=== PATIENT | female | born 1975 | race Caucasian/White ===

== ENCOUNTER 2020-07-19 18:23 | Inpatient (IN) ==
[2020-07-19] MEDS ORDERED: 0.9 % SODIUM CHLORIDE 1,000 ML IV ONE (18:46)
[2020-07-19] MEDS ORDERED: ASPIRIN 81 MG TAB.CHEW CHEWED ONE (18:51)
[2020-07-19] MEDS ORDERED: DEXAMETHASONE 10 MG/ML VIAL IV ONE (18:51)
[2020-07-19] MEDS ORDERED: REMDESIVIR 200 MG in 0.9 % SODIUM CHLORIDE 250 ML IV ONE (18:51)
--- NOTE | 2020-07-19 18:52 | Emergency Department Note ---
HPI General Chief complaint: Shortness of Breath/Dyspnea Stated complaint: SOB, covid positive Time Seen by Provider: 07/19/20 18:45 Source: patient Mode of arrival: wheelchair Limitations: no limitations History of Present Illness HPI Narrative: Narrative: 45-year-old patient presented with a history of symptoms consistent with upper respiratory infection that began 7 to 10 days ago. Associated symptoms include cough. Specific risk factors that I considered in this patient's case were obesity, hypertension, diabetes, pre-existing cardiovascular disease, and pre- existing pulmonary diseaseshe has asthma. Patient also reports concern for fever/myalgias. Symptoms are currently reported as mild to moderate in severity and continuous gradual progressive. Is exacerbated with coughing/not sleeping w ell. It is alleviated by rest. Patient has been seen for this recently. Patient has had current immunizations. Patient denies any sore throat, neck pain, chest pain, shortness of breath, abdominal pain, back pain, numbness or tingling in the extremities, skin rash, chills, vomiting, or diarrhea no other pain or complaints at this time. The patient reports symptoms are similar to previous flu/URI. Patient reports they do have sick contacts. Patient reports they have been tested for COVID19 and were tested negative however that was over a week ago. Related Data Home Medications Medication Instructions Recorded Confirmed liothyronine 5 mcg tablet 10 mcg PO QDAY tab 10/31/17 07/11/20 levothyroxine 25 mcg tablet 125 mcg PO QDAY tab 12/06/17 07/11/20 calcitriol 0.25 mcg capsule mcg PO 07/11/20 07/11/20 Previous Rx's Medication Instructions Recorded albuterol sulfate 90 mcg/actuation 2 puff INHALATION Q6H PRN #18 g 09/12/17 aerosol inhaler Allergies Allergy/AdvReac Type Severity Reaction Status Date / Time No Known Drug Allergies Allergy Verified 07/11/20 08:43 Review of Systems ROS ROS Narrative: Narrative: All systems ED: reviewed and negative except as stated. PFSH Narrative Patient History Narrative: Narrative: Medical/Surgical/Family History All Active Problems (Updated 07/19/20 @ 21:11 by Giancarlo Ritchie MD) COVID-19 (Acute) Abnormal mammogram of right breast (Acute) Encounter for screening mammogram for high-risk patient (Acute) Encounter for wellness examination (Acute) Prediabetes (Acute) JACQUI (obstructive sleep apnea) (Chronic) Influenza-like illness (Chronic) Hypoparathyroidism (Chronic) History of colon polyps (Chronic) Asthma (Chronic) Hypothyroidism (Chronic) Acute URI (Chronic) Reactive airway disease (Chronic) Low calcium levels (Chronic) Disorder of thyroid gland (Chronic) Kidney stones (Chronic ~2013) Hyperlipidemia (Chronic ~2013) Hypertension, essential (Chronic ~07/2017) Lung disorder (Chronic) Anemia (Chronic) Acid reflux (Chronic) Chronic cough (Chronic) Medical History (Updated 07/19/20 @ 21:11 by Giancarlo Ritchie MD) Acid reflux (Chronic) Acute URI (Chronic) Anemia (Chronic) during Asthma (Chronic) Disorder of thyroid gland (Chronic) Triage Nurse is Dr. Scott Encounter for wellness examination (Acute) History of colon polyps (Chronic) Hyperlipidemia (Chronic ~2013) Hypertension, essential (Chronic ~07/2017) Hypoparathyroidism (Chronic) Hypothyroidism (Chronic) Influenza-like illness (Chronic) Kidney stones (Chronic ~2013) Low calcium levels (Chronic) Lung disorder (Chronic) JACQUI (obstructive sleep apnea) (Chronic) Prediabetes (Acute) Reactive airway disease (Chronic) Surgical History H/O partial thyroidectomy (Chronic) 1997 Left side removed H/O thyroidectomy (Chronic) 2013 H/O: (Chronic 04/28/03) 2003 History of parathyroid surgery (Chronic ~2000) Resection History of parathyroidectomy (Chronic ~2013) History of surgery (Chronic ~1999) 1/2 goiter removed Family History Family/Other Arthritis Grandparent-maternal Leukemia Grandparent-maternal Diabetes Grandparent-maternal Thyroid disease Grandparent-maternal Family/Other Lung cancer Grandparent-paternal Thyroid disease Grandparent-paternal Mother Diabetes Hypertension, essential Sister Migraine Family/Other Thyroid disease Aunts Grandmother Liver cancer Skin cancer Grandfather Leukemia Social History Smoking Status: Never smoker Alcohol Intake Frequency: a few times a month Substance Use: does not use Exam Narrative Narrative: Narrative: General: Alert, interactive, appropriate Head: Atraumatic, normocephalic Eyes: Extraocular movements intact, sclera anicteric, no conjunctival injection Ears: Pinnae normal, no discharge Mouth: Oral mucosa moist, no acute swelling or evidence of infection Nares: No nasal discharge, patent bilaterally Neck: Trachea midline, full range of motion Chest: Symmetrical chest wall rise, tachypnea hypoxia patient in respiratory distress needing supplemental oxygen Cardiovascular: Patient with excellent perfusion to the extremities; without tachycardia/bradycardia Skin: Patient without area of erythema, patient is without rash, no ascending lymphangitis or lymphadenopathy Extremities: Full range of motion joints, no obvious deformities Neuro: Alert, oriented x3, cranial nerves II through XII grossly intact, patient without lateralizing findings such as weakness, or abnormal reflexes Psychiatric: Normal affect, normal mood General Limitations: no limitations Course Vital Signs Vital signs: Vital Signs Pulse Rate 102 H 07/19/20 18:32 Blood Pressure 126/80 07/19/20 18:32 Pulse Oximetry (%) 91 07/19/20 18:32 Temperature 99.0 F 07/19/20 18:43 Pulse Rate 89 07/19/20 20:45 Respiratory Rate 24 H 07/19/20 18:43 Blood Pressure 115/80 07/19/20 20:45 Pulse Oximetry (%) 92 07/19/20 20:45 MDM MDM Narrative Medical decision making narrative: This patient is presenting with symptoms and findings consistent with Covid infection. They are toxic in appearance with hypoxia tachypnea and tachycardia. They are not immunocompromised. The differential diagnosis also included bacterial pneumonia, influenza, pulmonary embolism, pneumothorax, pleural effusion. She was treated in the emergency department with Decadron aspirin first dose of remdesivir. Discussed the case with Dr. Hernandez and the consensus is to admit Lab Data Result diagrams: 07/19/20 20:12 07/19/20 20:12 Labs: Lab Results 07/19/20 07/19/20 07/19/20 Range/Units 20:12 20:12 20:12 WBC 12.0 H (4.5-11.0) K/mcL RBC 5.08 (4.00-5.20) M/mcL Hgb 13.0 (12.0-15.0) g/dL Hct 40.2 (36.0-48.0) % MCV 79.1 L (80.0-100.0) fL MCH 25.6 L (26.0-34.0) pg MCHC 32.3 (31.0-36.0) g/dL RDW 16.4 H (11.5-14.5) % Plt Count 448 H (140-440) K/mcL MPV 9.0 (7.4-10.4) fL Neut % (Auto) 84.0 H (38.0-78.0) % Lymph % (Auto) 9.6 L (15.0-49.0) % [place] % (Auto) 6.2 (1.0-12.0) % Eos % (Auto) 0 (0.0-7.0) % Baso % (Auto) 0.2 (0.0-2.0) % Lymph # (Auto) 1.15 L (1.50-4.80) K/mcL [place] # (Auto) 0.75 (0.10-0.90) K/mcL Eos # (Auto) 0 (0.00-0.70) K/mcL Baso # (Auto) 0.03 (0.00-0.20) K/mcL Absolute Neutrophils 10.08 H (1.80-8.00) K/mcL ABG Methemoglobin (0.4-1.5) % VBG pH U VBG pCO2 mmHg VBG pO2 mmHg VBG HCO3 mmol/L VBG Total CO2 mmol/L VBG O2 Saturation % VBG Base Excess (-2-3) VBG Lactic Acid 3.0 H (0.5-2.0) mmol/L Carboxyhemoglobin (0.0-1.5) % THgb Total Hemoglobin (13.5-16.5) gm/Dl Sodium 137 (133-145) mmol/L Potassium 3.1 L (3.3-5.1) mmol/L Chloride 97 (96-108) mmol/L Carbon Dioxide 20 L (22-30) mmol/L Anion Gap 20.0 H (8.0-16.0) BUN 17 (6-20) mg/dL Creatinine 1.1 (0.6-1.1) mg/dL GFR Calculation 61 Glucose 129 H (70-105) mg/dL Calcium 6.5 L (8.6-10.4) mg/dL Total Bilirubin 0.6 (0.1-1.0) mg/dL AST 29 (<32) U/L ALT 24 (<40) U/L Alkaline Phosphatase 54 (39-117) U/L Total Protein 7.5 (5.9-8.4) gm/dL Albumin 4.0 (3.2-5.2) gm/dL Globulin 3.5 (2.2-3.7) gm/dL Albumin/Globulin Ratio 1.1 (1.0-2.3) 07/19/20 Range/Units 20:28 WBC (4.5-11.0) K/mcL RBC (4.00-5.20) M/mcL Hgb (12.0-15.0) g/dL Hct (36.0-48.0) % MCV (80.0-100.0) fL MCH (26.0-34.0) pg MCHC (31.0-36.0) g/dL RDW (11.5-14.5) % Plt Count (140-440) K/mcL MPV (7.4-10.4) fL Neut % (Auto) (38.0-78.0) % Lymph % (Auto) (15.0-49.0) % [place] % (Auto) (1.0-12.0) % Eos % (Auto) (0.0-7.0) % Baso % (Auto) (0.0-2.0) % Lymph # (Auto) (1.50-4.80) K/mcL [place] # (Auto) (0.10-0.90) K/mcL Eos # (Auto) (0.00-0.70) K/mcL Baso # (Auto) (0.00-0.20) K/mcL Absolute Neutrophils (1.80-8.00) K/mcL ABG Methemoglobin 0 L (0.4-1.5) % VBG pH 7.47 U VBG pCO2 26.3 mmHg VBG pO2 146.8 mmHg VBG HCO3 18.8 mmol/L VBG Total CO2 19.6 mmol/L VBG O2 Saturation 94.1 % VBG Base Excess -4 L (-2-3) VBG Lactic Acid (0.5-2.0) mmol/L Carboxyhemoglobin 4.9 H (0.0-1.5) % THgb Total Hemoglobin 11.5 L (13.5-16.5) gm/Dl Sodium (133-145) mmol/L Potassium (3.3-5.1) mmol/L Chloride (96-108) mmol/L Carbon Dioxide (22-30) mmol/L Anion Gap (8.0-16.0) BUN (6-20) mg/dL Creatinine (0.6-1.1) mg/dL GFR Calculation Glucose (70-105) mg/dL Calcium (8.6-10.4) mg/dL Total Bilirubin (0.1-1.0) mg/dL AST (<32) U/L ALT (<40) U/L Alkaline Phosphatase (39-117) U/L Total Protein (5.9-8.4) gm/dL Albumin (3.2-5.2) gm/dL Globulin (2.2-3.7) gm/dL Albumin/Globulin Ratio (1.0-2.3) Discharge Plan Patient/Caregiver Discharge Instructions Pt seen by TIP MENDER/PA only: No Clinical Impression: COVID-19 Patient Disposition: Xfer As Inpt ([facility]) Condition: Fair Follow up with: Vira Dumont DO [Primary Care Provider] - Prescriptions: No Action liothyronine [Cytomel] 5 mcg tablet 10 mcg PO QDAY RF: 0 albuterol sulfate [ProAir HFA] 90 mcg/actuation HFA aerosol inhaler 2 puff INHALATION Q6H PRN (Reason: shortness of breath or wheezing) Qty: 18 RF: 0 levothyroxine [Synthroid] 25 mcg tablet 125 mcg PO QDAY RF: 0 calcitriol 0.25 mcg capsule PO RF: 0
[2020-07-19 20:36] LABS: Basophils # (Auto) 0.03 K/mcL (0.00-0.20); Basophils % (Auto) 0.2 % (0.0-2.0); Eosinophils # (Auto) 0 K/mcL (0.00-0.70); Eosinophils % (Auto) 0 % (0.0-7.0); Hematocrit 40.2 % (36.0-48.0); Lymphocytes # (Auto) 1.15 K/mcL (1.50-4.80); Lymphocytes % (Auto) 9.6 % (15.0-49.0); Mean Cell Volume 79.1 fL (80.0-100.0); Mean Corpuscular HGB Conc 32.3 g/dL (31.0-36.0); Monocytes # (Auto) 0.75 K/mcL (0.10-0.90); Monocytes % (Auto) 6.2 % (1.0-12.0); Platelet Count 448 K/mcL (140-440); RBC 5.08 M/mcL (4.00-5.20); Red Cell Distribution Width 16.4 % (11.5-14.5)
[2020-07-19 20:41] LABS: ALT/SGPT 24 U/L (<40); AST/SGOT 29 U/L (<32); Albumin/Globulin Ratio 1.1 (1.0-2.3); Alkaline Phosphatase 54 U/L (39-117); Bilirubin,Total 0.6 mg/dL (0.1-1.0); Blood Urea Nitrogen 17 mg/dL (6-20); Calcium 6.5 mg/dL (8.6-10.4); Carbon Dioxide 20 mmol/L (22-30); Chloride 97 mmol/L (96-108); Globulin 3.5 gm/dL (2.2-3.7); Glomerular Filtration Rate 61; Glucose 129 mg/dL (70-105)
[2020-07-19 20:46] LABS: ABG Methemoglobin 0 % (0.4-1.5); Total Hemoglobin 11.5 gm/Dl (13.5-16.5); VBG Base Excess -4 (-2-3); VBG HCO3 18.8 mmol/L; VBG Oxygen Saturation 94.1 %; VBG PCO2 26.3 mmHg; VBG PH 7.47 U; VBG PO2 146.8 mmHg; VBG Total CO2 19.6 mmol/L
--- NOTE | 2020-07-19 21:15 | Internal Med History&Physical ---
HPI History of Present Illness Patient information: Note initiated : 07/19/20 at 9:13 pm Service Date, if different from initiated Date: [] Patient: Kaety Maria a 45 y/o F admitted on for SOB, covid positive. 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 Patient is and lives with her who was recently diagnosed with Covid. Initial work-up in the ER was consistent with Covid pneumonia/white count 12,000. Patient was started on remdesivir/steroid. Hospital service was consulted. At the time of evaluation patient is on 3 L oxygen. She is anxious but able to talk in full sentences without significant respiratory distress. She denies headache, photophobia, nausea, diarrhea, dysuria, chest pain or productive cough. She does endorse to fatigue malaise weakness and fever. Review of systems 10 point review system was performed and is negative except for ones discussed above PFSH PFSH All Active Problems (Updated 07/19/20 @ 21:11 by Giancarlo Ritchie MD) COVID-19 (Acute) Abnormal mammogram of right breast (Acute) Encounter for screening mammogram for high-risk patient (Acute) Encounter for wellness examination (Acute) Prediabetes (Acute) JACQUI (obstructive sleep apnea) (Chronic) Influenza-like illness (Chronic) Hypoparathyroidism (Chronic) History of colon polyps (Chronic) Asthma (Chronic) Hypothyroidism (Chronic) Acute URI (Chronic) Reactive airway disease (Chronic) Low calcium levels (Chronic) Disorder of thyroid gland (Chronic) Kidney stones (Chronic ~2013) Hyperlipidemia (Chronic ~2013) Hypertension, essential (Chronic ~07/2017) Lung disorder (Chronic) Anemia (Chronic) Acid reflux (Chronic) Chronic cough (Chronic) Medical History (Updated 07/19/20 @ 21:11 by Giancarlo Ritchie MD) Acid reflux (Chronic) Acute URI (Chronic) Anemia (Chronic) during Asthma (Chronic) Disorder of thyroid gland (Chronic) Director Of Philanthropy is Dr. Scott Encounter for wellness examination (Acute) History of colon polyps (Chronic) Hyperlipidemia (Chronic ~2013) Hypertension, essential (Chronic ~07/2017) Hypoparathyroidism (Chronic) Hypothyroidism (Chronic) Influenza-like illness (Chronic) Kidney stones (Chronic ~2013) Low calcium levels (Chronic) Lung disorder (Chronic) JACQUI (obstructive sleep apnea) (Chronic) Prediabetes (Acute) Reactive airway disease (Chronic) Surgical History H/O partial thyroidectomy (Chronic) 1997 Left side removed H/O thyroidectomy (Chronic) 2013 H/O: (Chronic 04/28/03) 2003 History of parathyroid surgery (Chronic ~2000) Resection History of parathyroidectomy (Chronic ~2013) History of surgery (Chronic ~1999) 1/2 goiter removed Family History Family/Other Arthritis Grandparent-maternal Leukemia Grandparent-maternal Diabetes Grandparent-maternal Thyroid disease Grandparent-maternal Family/Other Lung cancer Grandparent-paternal Thyroid disease Grandparent-paternal Mother Diabetes Hypertension, essential Sister Migraine Family/Other Thyroid disease Aunts Grandmother Liver cancer Skin cancer Grandfather Leukemia Social History marital status: smoking status: Never smoker alcohol intake frequency: a few times a month substance use type: does not use MEDS/ALLERGIES Home Medications and Allergies Home Medications Medication Instructions Recorded Confirmed Type albuterol sulfate 90 mcg/actuation 2 puff INHALATION Q6H PRN #18 g 09/12/17 Rx aerosol inhaler liothyronine 5 mcg tablet 10 mcg PO QDAY tab 10/31/17 07/19/20 History levothyroxine 25 mcg tablet 125 mcg PO QDAY tab 12/06/17 07/19/20 History calcitriol 0.25 mcg capsule 0.25 mcg PO BID 07/11/20 07/19/20 History Allergies Allergy/AdvReac Type Severity Reaction Status Date / Time No Known Drug Allergies Allergy Verified 07/19/20 22:12 EXAM Constitutional Vitals: Temp Pulse Resp BP Pulse Ox 99.0 F 89 24 H 115/80 92 07/19/20 18:43 07/19/20 20:45 07/19/20 18:43 07/19/20 20:45 07/19/20 20:45 Anxious but alert and oriented Head normocephalic Oral cavity moist No ear nose discharge Eye movement symmetrical Neck supple no lymphadenopathy S1-S2 regular Nonlabored breathing on 2 L oxygen Nondistended nontender abdomen Lower extremity no cyanosis clubbing or joint swelling Skin no suspicious lesion Psych no hallucination Neuro normal higher function DATA Data Completed and Pending Labs: Labs from last 24 hours 07/19/20 07/19/20 07/19/20 20:28 20:12 20:12 WBC RBC Hgb Hct MCV MCH MCHC RDW Plt Count MPV Neut % (Auto) Lymph % (Auto) [place] % (Auto) Eos % (Auto) Baso % (Auto) Lymph # (Auto) [place] # (Auto) Eos # (Auto) Baso # (Auto) Absolute Neutrophils ABG Methemoglobin 0 L VBG pH 7.47 VBG pCO2 26.3 VBG pO2 146.8 VBG HCO3 18.8 VBG Total CO2 19.6 VBG O2 Saturation 94.1 VBG Base Excess -4 L VBG Lactic Acid 3.0 H Carboxyhemoglobin 4.9 H Total Hemoglobin 11.5 L Sodium 137 Potassium 3.1 L Chloride 97 Carbon Dioxide 20 L Anion Gap 20.0 H BUN 17 Creatinine 1.1 GFR Calculation 61 Glucose 129 H Calcium 6.5 L Total Bilirubin 0.6 AST 29 ALT 24 Alkaline Phosphatase 54 Total Protein 7.5 Albumin 4.0 Globulin 3.5 Albumin/Globulin Ratio 1.1 07/19/20 20:12 WBC 12.0 H RBC 5.08 Hgb 13.0 Hct 40.2 MCV 79.1 L MCH 25.6 L MCHC 32.3 RDW 16.4 H Plt Count 448 H MPV 9.0 Neut % (Auto) 84.0 H Lymph % (Auto) 9.6 L [place] % (Auto) 6.2 Eos % (Auto) 0 Baso % (Auto) 0.2 Lymph # (Auto) 1.15 L [place] # (Auto) 0.75 Eos # (Auto) 0 Baso # (Auto) 0.03 Absolute Neutrophils 10.08 H ABG Methemoglobin VBG pH VBG pCO2 VBG pO2 VBG HCO3 VBG Total CO2 VBG O2 Saturation VBG Base Excess VBG Lactic Acid Carboxyhemoglobin Total Hemoglobin Sodium Potassium Chloride Carbon Dioxide Anion Gap BUN Creatinine GFR Calculation Glucose Calcium Total Bilirubin AST ALT Alkaline Phosphatase Total Protein Albumin Globulin Albumin/Globulin Ratio A/P Narrative A/P Narrative: * COVID 19 Pneumonia, bilateral chest infiltrates on imaging. Start remdesivir/dexamethasone/COVID-19 precaution. Serial coagulation/inflammatory markers * Acute respiratory failure with hypoxia-initiate supplemental low-flow oxygen * hypokalemia-oral replacement * Hypocalcemia oral replacement * Hypothyroidism continue thyroxine * Full code * Prophylaxis Lovenox Plan * Inpt Admit * Remdesivir/dexamethasone * Coag/inflammatory markers * Emperic Abx * K/calcium replacement Time Spent With Patient Time: Total time spent is greater than 50% in coordination of care (as d ocumented) at patient's floor/unit and/or counseling patient:
[2020-07-19] MEDS ORDERED: BISACODYL 10 MG SUPP.RECT PR PRN (23:40)
[2020-07-19] MEDS ORDERED: hydrALAZINE 20 MG/ML VIAL IV PRN (23:40)
[2020-07-19] MEDS ORDERED: ONDANSETRON 4 MG ODT TABLET SL PRN (23:40)
[2020-07-19] MEDS ORDERED: POLYETHYLENE GLYCOL 3350 17 GM PACKET PO PRN (23:40)
[2020-07-19] MEDS ORDERED: ACETAMINOPHEN 325 MG TABLET PO PRN (23:40)
[2020-07-19] MEDS ORDERED: ONDANSETRON 4 MG/2 ML VIAL IV PRN (23:40)
[2020-07-19] MEDS ORDERED: POTASSIUM CHLORIDE 40 MEQ in DEXTROSE 5% IN WATER 500 ML IV PRN (23:40)
[2020-07-19] MEDS ORDERED: METOPROLOL TARTRATE 5 MG/5 ML VIAL IV PRN (23:40)
[2020-07-19] MEDS ORDERED: MAGNESIUM SULFATE 2 GM/50 ML BAG IV PRN (23:40)
[2020-07-19] MEDS ORDERED: MELATONIN 3 MG TABLET PO PRN (23:40)
[2020-07-19] MEDS ORDERED: ACETAMINOPHEN 650 MG/65 ML BOTTLE IV PRN (23:40)
[2020-07-19] MEDS ORDERED: guaiFENesin/CODEINE 10 ML UDC PO PRN (23:40)
[2020-07-19] MEDS ORDERED: guaiFENesin/DEXTROMETHORPHAN ORAL SOL ONE (23:55)
[2020-07-19] MEDS ORDERED: cefTRIAXone 1 GM VIAL ONE (23:59)
[2020-07-20] MEDS ORDERED: guaiFENesin/DEXTROMETHORPHAN ORAL SOL ONE ×2 (00:01→00:11)
[2020-07-20] MEDS: 0.9 % SODIUM CHLORIDE 10 ML SYRINGE IV SCH ×4 (00:20→20:03)
[2020-07-20] MEDS: AZITHROMYCIN 500 MG in DEXTROSE 5% IN WATER 250 ML IV SCH ×2 (00:20→15:34)
[2020-07-20] MEDS: cefTRIAXone 2 GM in DEXTROSE 5% IN WATER 50 ML IV SCH ×2 (00:21→13:47)
[2020-07-20 06:32] LABS: Basophils # (Auto) 0.03 K/mcL (0.00-0.20); Basophils % (Auto) 0.4 % (0.0-2.0); Eosinophils # (Auto) 0 K/mcL (0.00-0.70); Eosinophils % (Auto) 0 % (0.0-7.0); Hematocrit 35.7 % (36.0-48.0); Hemoglobin 11.6 g/dL (12.0-15.0); Lymphocytes % (Auto) 9.4 % (15.0-49.0); Mean Cell Volume 79.7 fL (80.0-100.0); Mean Corpuscular HGB Conc 32.5 g/dL (31.0-36.0); Mean Platelet Volume 9.2 fL (7.4-10.4); Monocytes # (Auto) 0.62 K/mcL (0.10-0.90); Monocytes % (Auto) 7.3 % (1.0-12.0); Neutrophils % (Auto) 82.9 % (38.0-78.0); Platelet Count 366 K/mcL (140-440); RBC 4.48 M/mcL (4.00-5.20); Red Cell Distribution Width 16.5 % (11.5-14.5); WBC 8.5 K/mcL (4.5-11.0)
[2020-07-20 07:26] LABS: Ferritin 359.5 ng/mL (13.0-150.0)
--- NOTE | 2020-07-20 07:43 | XRay Report ---
HISTORY: Shortness of breath and patient's has Covid infection FINDINGS: There are mild generalized alveolar infiltrates throughout both lungs. There is no lobar consolidation or pleural effusion. The heart size is normal. No adenopathy is detected. The infiltrates are new since 09/12/17. IMPRESSION: Bilateral pneumonia Interpreted and Authenticated by: Celestino Brumfield 07/20/20
[2020-07-20 07:49] LABS: ALT/SGPT 22 U/L (<40); AST/SGOT 26 U/L (<32); Albumin 3.4 gm/dL (3.2-5.2); Albumin/Globulin Ratio 1.1 (1.0-2.3); Alkaline Phosphatase 48 U/L (39-117); Bilirubin,Direct < 0.2 mg/dL (<0.3); Bilirubin,Total 0.3 mg/dL (0.1-1.0); Blood Urea Nitrogen 14 mg/dL (6-20); Calcium 5.7 mg/dL (8.6-10.4); Carbon Dioxide 20 mmol/L (22-30); Chloride 104 mmol/L (96-108); Globulin 3.1 gm/dL (2.2-3.7); Glomerular Filtration Rate 90; Glucose 199 mg/dL (70-105); Lactate Dehydrogenase 440 U/L (135-225); Triglycerides 62 mg/dL (<150); Uric Acid 7.8 mg/dL (2.5-8.0)
[2020-07-20] MEDS ORDERED: CALCIUM GLUCONATE 4.65 MEQ/10 ML VIAL IV ONE (08:13)
[2020-07-20] MEDS ORDERED: CALCIUM GLUCONATE 9.3 MEQ in DEXTROSE 5% IN WATER 50 ML IV ONE (08:30)
[2020-07-20] MEDS ORDERED: CALCIUM GLUCONATE 4.65 MEQ/10 ML VIAL IV PRN (08:51)
[2020-07-20] MEDS ORDERED: CALCIUM GLUCONATE 9.3 MEQ in DEXTROSE 5% IN WATER 100 ML IV PRN ×2 (09:09→09:15)
[2020-07-20] MEDS: 0.9 % SODIUM CHLORIDE 1,000 ML IV SCH (09:59)
[2020-07-20] MEDS: DOCUSATE SODIUM 100 MG CAPSULE PO SCH ×2 (09:59→20:03)
[2020-07-20] MEDS: DEXAMETHASONE 4 MG TABLET PO SCH (09:59)
[2020-07-20] MEDS: ENOXAPARIN 40 MG/0.4 ML SYRINGE SQ SCH (10:00)
[2020-07-20] MEDS: MULTIVIT,THER IRON,CA,FA & MIN 1 TABLET PO SCH (10:01)
[2020-07-20] MEDS: TIOTROPIUM BROMIDE 18 MCG INHALANT INH SCH (10:28)
[2020-07-20] MEDS: BUDESONIDE 1 PUFF INHALER INH SCH ×2 (10:29→20:44)
--- NOTE | 2020-07-20 10:39 | Internal Med Progress Note ---
SUBJECTIVE Subjective Patient information: Note initiated : 07/20/20 at 10:37 am Service Date, if different from initiated Date: [] Patient: Katey Maria a 45 y/o F admitted on 07/19/20 for SOB, covid positive. 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 Patient is and lives with her who was recently diagnosed with Covid. Initial work-up in the ER was consistent with Covid pneumonia/white count 12,000. Patient was started on remdesivir/steroid. Hospital service was consulted. At the time of evaluation patient is on 3 L oxygen. She is anxious but able to talk in full sentences without significant respiratory distress. She denies headache, photophobia, nausea, diarrhea, dysuria, chest pain or productive cough. She does endorse to fatigue malaise weakness and fever. 07/20-patient currently on 5 L oxygen with worsening respiratory status since previous night. Currently on remdesivir/dexamethasone. Feels anxious. No telemetry events. Continue COVID-19 precautions. White count 8.5. Stable hemodynamics. Potassium up from 3.1-3.7. Calcium 5.7 on replacement. Creatinine 1.8. Constitutional Vitals: Vital Signs Temp Pulse Resp BP Pulse Ox 97.4 F 73 24 H 111/81 94 07/20/20 07:41 07/20/20 10:25 07/20/20 10:01 07/20/20 10:01 07/20/20 10:25 Period Temp Pulse Resp BP Sys/Cobb Pulse Ox Last 24 Hr 97 F-99.0 F 63-103 24-31 89-131/56-100 83-99 Intake and Output 07/19/20 07/20/20 07/20/20 21:59 05:59 13:59 Intake Total 1000 250 350 Balance 1000 250 350 Weight 88.088 kg 87.044 kg Alert but very anxious Minimally labored breathing on 5 L oxygen No lymphedema Intake & Output: Intake & Output 07/19/20 07/20/20 07/20/20 21:59 05:59 13:59 Intake Total 1000 250 350 Balance 1000 250 350 Weight 88.088 kg 87.044 kg Intake: IV 1000 250 250 Sodium Chloride 0.9% 1,000 ml @ 1000 Wide Open IV BOLUS ONE Rx#: [id number] Zithromax 500 mg In Dextrose 5% 250 in Water 250 ml @ 250 mls/hr IV Q24H [facility] Rx#:[id number] Veklury 200 mg In Sodium 250 Chloride 0.9% 250 ml @ 500 mls/ hr IV ONCE ONE Rx#:[id number] Oral 100 Other: # Voids 1 1 # Bowel Movements 1 OBJ DATA Labs CBC & Chem 7: 07/20/20 05:01 07/20/20 05:01 Labs: Abnormal Lab Results 07/20/20 07/20/20 07/19/20 05:01 05:01 20:28 WBC Hgb 11.6 L Hct 35.7 L MCV 79.7 L MCH 25.9 L RDW 16.5 H Plt Count Neut % (Auto) 82.9 H Lymph % (Auto) 9.4 L Lymph # (Auto) 0.80 L Absolute Neutrophils ABG Methemoglobin 0 L VBG Base Excess -4 L VBG Lactic Acid Carboxyhemoglobin 4.9 H Total Hemoglobin 11.5 L Potassium Carbon Dioxide 20 L Anion Gap 17.0 H Glucose 199 H Calcium 5.7 L* Ferritin 359.5 H GGT 47 H Lactate Dehydrogenase 440 H C-Reactive Protein 13.50 H 07/19/20 07/19/20 07/19/20 20:12 20:12 20:12 WBC 12.0 H Hgb Hct MCV 79.1 L MCH 25.6 L RDW 16.4 H Plt Count 448 H Neut % (Auto) 84.0 H Lymph % (Auto) 9.6 L Lymph # (Auto) 1.15 L Absolute Neutrophils 10.08 H ABG Methemoglobin VBG Base Excess VBG Lactic Acid 3.0 H Carboxyhemoglobin Total Hemoglobin Potassium 3.1 L Carbon Dioxide 20 L Anion Gap 20.0 H Glucose 129 H Calcium 6.5 L Ferritin GGT Lactate Dehydrogenase C-Reactive Protein Meds: Medications Acetaminophen (Tylenol) 650 mg PO Q4-6HP PRN; Protocol PRN Reason: Per Pain Protocol/Fever > 101 Bisacodyl (Dulcolax) 10 mg MO Q2-3DAYS PRN PRN Reason: Constipation Budesonide (Pulmicort) 2 puff INH BID [facility] Last Admin: 07/20/20 10:29 Dose: 2 puff Documented by: Dexamethasone (Decadron) 6 mg PO DAILY [facility] Last Admin: 07/20/20 09:59 Dose: 6 mg Documented by: Docusate Sodium (Colace) 100 mg PO BID [facility] Last Admin: 07/20/20 09:59 Dose: Not Given Documented by: Enoxaparin Sodium (Lovenox) 40 mg SQ DAILY [facility] Last Admin: 07/20/20 10:00 Dose: 40 mg Documented by: Guaifenesin/Codeine Phosphate (Robitussin Ac) 10 ml PO Q4HP PRN PRN Reason: Cough Hydralazine HCl (Apresoline) 10 mg IV Q4-6HP PRN PRN Reason: Hypertension Azithromycin 500 mg/ Dextrose 250 mls @ 250 mls/hr IV Q24H [facility]; Protocol Stop: 07/22/20 00:39 Last Infusion: 07/20/20 06:59 Dose: Infused Documented by: Ceftriaxone Sodium 2 gm/ (Dextrose) 50 mls @ 100 mls/hr IV Q24H [facility]; Protocol Last Admin: 07/20/20 00:21 Dose: Not Given Documented by: Potassium Chloride 40 meq/ (Dextrose) 520 mls @ 130 mls/hr IV UD PRN PRN Reason: K+ = or < 3.5 Acetaminophen (Ofirmev) 650 mg in 65 mls @ 130 mls/hr IV Q6HP PRN; Protocol PRN Reason: Per Pain Protocol/Fever > 101 Magnesium Sulfate (Magnesium Sulfate) 2 gm in 50 mls @ 50 mls/hr IV UD PRN PRN Reason: MG = or < 1.7 Lactated Ringer's (Lactated Ringers) 1,000 mls @ 75 mls/hr IV .[id number] [facility] Stop: 07/22/20 00:59 Sodium Chloride (Sodium Chloride 0.9%) 1,000 mls @ 0 mls/hr IV BOLUS [facility] Last Admin: 07/20/20 09:59 Dose: 999 mls/hr Documented by: Calcium Gluconate 9.3 meq/ (Dextrose) 120 mls @ 120 mls/hr IV DAILYP PRN PRN Reason: CA <7.5 REMDESIVIR 100 mg/ Sodium (Chloride) 250 mls @ 500 mls/hr IV Q24H [facility] Stop: 07/23/20 13:29 Iron Carb/Multivit/Weld/Folic Acid (Multivitamin W/Minerals) 1 tab PO DAILY [facility] Last Admin: 07/20/20 10:01 Dose: 1 tab Documented by: Melatonin (Melatonin 3mg Tablet) 3 mg PO HSP PRN PRN Reason: Insomnia Metoprolol Tartrate (Lopressor) 5 mg IV Q5M PRN PRN Reason: Heart Rate > 140 bpm Ondansetron HCl (Zofran Odt) 4 mg SL Q4-6HP PRN; Protocol PRN Reason: Nausea And Vomiting Ondansetron HCl (Zofran) 4 mg IV Q4-6HP PRN; Protocol PRN Reason: Nausea And Vomiting Polyethylene Glycol (Miralax) 17 gm PO DAILYP PRN PRN Reason: Constipation Potassium Chloride (Klor-Con) 40 meq PO DAILYP PRN PRN Reason: K+ < 3.5 Senna/Docusate Sodium (Senna Plus Tablet) 1 tab PO HS [facility] Sodium Chloride (Saline Flush) 10 ml IV Q8 [facility] Last Admin: 07/20/20 06:00 Dose: 10 ml Documented by: Tiotropium [place] (Spiriva) 18 mcg INH DAILY [facility] Last Admin: 07/20/20 10:28 Dose: 18 mcg Documented by: ABG Interpretation ABG results: 07/19/20 20:28 ABG Methemoglobin 0 L VBG pH 7.47 VBG pCO2 26.3 VBG pO2 146.8 VBG HCO3 18.8 VBG Total CO2 19.6 VBG O2 Saturation 94.1 VBG Base Excess -4 L A/P Narrative A/P Narrative: * COVID 19 Pneumonia, bilateral chest infiltrates on imaging. Start remdesivir/dexamethasone/COVID-19 precaution. Serial coagulation/inflammatory markers * Acute respiratory failure with hypoxia-initiate supplemental low-flow oxygen * hypokalemia-oral replacement * Hypocalcemia oral replacement * Hypothyroidism continue thyroxine * Full code * Prophylaxis Lovenox Plan * Empiric antibiotic coverage/Remdesivir/dexamethasone * Follow coag/inflammatory marker * calcium replacement * Nutrition support Time Spent With Patient Time: Total time spent is greater than 50% in coordination of care (as do cumented) at patient's floor/unit and/or counseling patient: QUALITY VTE Deep Vein Thrombosis/Pulmonary Embolism Present on Admission: No
[2020-07-20] MEDS: REMDESIVIR 100 MG in 0.9 % SODIUM CHLORIDE 250 ML IV SCH (12:51)
[2020-07-20] MEDS: LACTATED RINGERS 1,000 ML IV SCH ×2 (17:08→22:33)
[2020-07-20] MEDS: SENNOSIDES/DOCUSATE SODIUM 1 TAB TABLET PO SCH (20:03)
[2020-07-20] MEDS: CALCITRIOL 0.25 MCG CAPSULE PO SCH (20:44)
[2020-07-20] MEDS ORDERED: LORazepam 0.5 MG TABLET PO PRN (22:16)
[2020-07-21] MEDS: 0.9 % SODIUM CHLORIDE 10 ML SYRINGE IV SCH ×3 (05:02→23:12)
[2020-07-21] MEDS: LACTATED RINGERS 1,000 ML IV SCH ×2 (05:56→15:29)
[2020-07-21 06:46] LABS: Basophils # (Auto) 0.04 K/mcL (0.00-0.20); Basophils % (Auto) 0.4 % (0.0-2.0); Eosinophils # (Auto) 0.01 K/mcL (0.00-0.70); Eosinophils % (Auto) 0.1 % (0.0-7.0); Hematocrit 33.4 % (36.0-48.0); Hemoglobin 10.7 g/dL (12.0-15.0); Lymphocytes # (Auto) 1.47 K/mcL (1.50-4.80); Lymphocytes % (Auto) 14.8 % (15.0-49.0); Mean Cell Volume 80.9 fL (80.0-100.0); Mean Platelet Volume 9.2 fL (7.4-10.4); Monocytes # (Auto) 0.89 K/mcL (0.10-0.90); Neutrophils % (Auto) 75.7 % (38.0-78.0); Platelet Count 405 K/mcL (140-440); RBC 4.13 M/mcL (4.00-5.20); Red Cell Distribution Width 16.7 % (11.5-14.5); WBC 9.9 K/mcL (4.5-11.0)
[2020-07-21 07:07] LABS: ALT/SGPT 19 U/L (<40); AST/SGOT 22 U/L (<32); Albumin 2.9 gm/dL (3.2-5.2); Albumin/Globulin Ratio 1.1 (1.0-2.3); Alkaline Phosphatase 43 U/L (39-117); Bilirubin,Direct < 0.2 mg/dL (<0.3); Bilirubin,Total 0.2 mg/dL (0.1-1.0); Blood Urea Nitrogen 15 mg/dL (6-20); Calcium 6.1 mg/dL (8.6-10.4); Carbon Dioxide 21 mmol/L (22-30); Chloride 108 mmol/L (96-108); Globulin 2.7 gm/dL (2.2-3.7); Glomerular Filtration Rate 106; Glucose 127 mg/dL (70-105); Lactate Dehydrogenase 400 U/L (135-225); Phosphorous 3.6 mg/dL (2.5-4.5); Triglycerides 25 mg/dL (<150)
[2020-07-21] MEDS: LEVOTHYROXINE 125 MCG TABLET PO SCH (07:20)
[2020-07-21] MEDS: LIOTHYRONINE 5 MCG TABLET PO SCH (07:20)
[2020-07-21] MEDS: DOCUSATE SODIUM 100 MG CAPSULE PO SCH ×2 (08:02→21:02)
[2020-07-21] MEDS: cefTRIAXone 2 GM in DEXTROSE 5% IN WATER 50 ML IV SCH (08:20)
[2020-07-21] MEDS: ENOXAPARIN 40 MG/0.4 ML SYRINGE SQ SCH ×2 (08:20→21:01)
[2020-07-21] MEDS: CALCITRIOL 0.25 MCG CAPSULE PO SCH ×2 (08:20→20:59)
[2020-07-21] MEDS: MULTIVIT,THER IRON,CA,FA & MIN 1 TABLET PO SCH (08:20)
[2020-07-21] MEDS: DEXAMETHASONE 4 MG TABLET PO SCH (08:21)
[2020-07-21] MEDS: BUDESONIDE 1 PUFF INHALER INH SCH ×2 (08:27→21:02)
[2020-07-21] MEDS: TIOTROPIUM BROMIDE 18 MCG INHALANT INH SCH (08:27)
--- NOTE | 2020-07-21 08:55 | XRay Report ---
HISTORY: Follow-up pneumonia FINDINGS: Moderate diffuse alveolar infiltrate is present throughout the left lung and there is also moderate involvement centrally in the right lung. These have become worse bilaterally since 07/19/20. No pleural effusion is present. The heart appears borderline enlarged but is magnified by portable technique and suboptimal inspiration.. IMPRESSION: Worsening bilateral pneumonia Interpreted and Authenticated by: Celestino Brumfield 07/21/20
[2020-07-21] MEDS ORDERED: FLU VACC QS2020-21(6MOS UP)/PF 60 MCG/0.5 ML SYRINGE IM ONE (10:00)
--- NOTE | 2020-07-21 10:52 | Internal Med Progress Note ---
SUBJECTIVE Subjective Patient information: Note initiated : 07/21/20 at 10:47 am Service Date, if different from initiated Date: [] Patient: Katey Maria a 45 y/o F admitted on 07/19/20 for SOB, covid positive. 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 Patient is and lives with her who was recently diagnosed with Covid. Initial work-up in the ER was consistent with Covid pneumonia/white count 12,000. Patient was started on remdesivir/steroid. Hospital service was consulted. At the time of evaluation patient is on 3 L oxygen. She is anxious but able to talk in full sentences without significant respiratory distress. She denies headache, photophobia, nausea, diarrhea, dysuria, chest pain or productive cough. She does endorse to fatigue malaise weakness and fever. 07/20-patient currently on 5 L oxygen with worsening respiratory status since previous night. Currently on remdesivir/dexamethasone. Feels anxious. No telemetry events. Continue COVID-19 precautions. White count 8.5. Stable hemodynamics. Potassium up from 3.1-3.7. Calcium 5.7 on replacement. Creatinine 1.8. Later in the evening patient became profoundly short of breath and requiring 10 days oxygen. Patient transition to noninvasive ventilation. Clear worsening of Covid pneumonia noted. Now on 55% FiO2 on noninvasive ventilation. Continue remdesivir/dexamethasone. Consider transfer to tertiary center if clinical deterioration noted. Patient critically ill with [place] 2 score 15. 07/21-patient overnight on noninvasive mechanical ventilation. Currently on 40% FiO2. Feels a lot better. Less things anxious. White count 9.9. D-dimer low, potassium 3.2 on replacement, calcium 6.1 on replacement, ferritin 359, CRP 13.5. Continue twice daily thrombosis prophylaxis./Antibiotics/remdesivir dexamethasone Constitutional Vitals: Vital Signs Temp Pulse Resp BP Pulse Ox 97.1 F 66 21 126/112 97 07/21/20 08:22 07/21/20 10:29 07/21/20 08:00 07/21/20 10:29 07/21/20 10:29 Period Temp Pulse Resp BP Sys/Cobb Pulse Ox Last 24 Hr 97.1 F-98.6 F 58-90 21-30 98-140/65-123 88-98 Intake and Output 07/20/20 07/21/20 07/21/20 21:59 05:59 13:59 Intake Total 780 960 Output Total 50 Balance 780 910 Weight 90.174 kg Alert oriented Improve anxiety On CPAP 40- 55% FiO2 Stable hemodynamics Intake & Output: Intake & Output 07/20/20 07/21/20 07/21/20 21:59 05:59 13:59 Intake Total 780 960 Output Total 50 Balance 780 910 Weight 90.174 kg Intake: IV 300 960 Zithromax 500 mg In Dextrose 5% 250 in Water 250 ml @ 250 mls/hr IV Q24H [facility] Rx#:[id number] Lactated Ringers 1,000 ml @ 75 960 mls/hr IV .[id number] RUMA Rx#: [id number] Rocephin 2 gm In Dextrose 5% in 50 Water 50 ml @ 100 mls/hr IV Q24H RUMA Rx#:[id number] Oral 480 0 Output: Void Amount 50 Other: Meal Dinner Percent of Meal Consumed 100% Feeding Ability Independent Urine Appearance Clear Clear Urine Color Bright Yellow Bright Yellow Stool Size Small Moderate Stool Color Brown Brown Stool Consistency Loose Loose Loose # Voids 1 1 1 # Bowel Movements 1 1 OBJ DATA Labs CBC & Chem 7: 07/21/20 05:00 07/21/20 05:00 Labs: Abnormal Lab Results 07/21/20 07/21/20 07/21/20 05:00 05:00 05:00 WBC Hgb 10.7 L Hct 33.4 L MCV MCH 25.9 L RDW 16.7 H Plt Count Neut % (Auto) Lymph % (Auto) 14.8 L Lymph # (Auto) 1.47 L Absolute Neutrophils D-Dimer < 0.27 L ABG Methemoglobin VBG Base Excess VBG Lactic Acid Carboxyhemoglobin Total Hemoglobin Potassium 3.2 L Carbon Dioxide 21 L Anion Gap Glucose 127 H Calcium 6.1 L Ferritin GGT 40 H Lactate Dehydrogenase 400 H C-Reactive Protein Total Protein 5.6 L Albumin 2.9 L 07/20/20 07/20/20 07/19/20 05:01 05:01 20:28 WBC Hgb 11.6 L Hct 35.7 L MCV 79.7 L MCH 25.9 L RDW 16.5 H Plt Count Neut % (Auto) 82.9 H Lymph % (Auto) 9.4 L Lymph # (Auto) 0.80 L Absolute Neutrophils D-Dimer ABG Methemoglobin 0 L VBG Base Excess -4 L VBG Lactic Acid Carboxyhemoglobin 4.9 H Total Hemoglobin 11.5 L Potassium Carbon Dioxide 20 L Anion Gap 17.0 H Glucose 199 H Calcium 5.7 L* Ferritin 359.5 H GGT 47 H Lactate Dehydrogenase 440 H C-Reactive Protein 13.50 H Total Protein Albumin 07/19/20 07/19/20 07/19/20 20:12 20:12 20:12 WBC 12.0 H Hgb Hct MCV 79.1 L MCH 25.6 L RDW 16.4 H Plt Count 448 H Neut % (Auto) 84.0 H Lymph % (Auto) 9.6 L Lymph # (Auto) 1.15 L Absolute Neutrophils 10.08 H D-Dimer ABG Methemoglobin VBG Base Excess VBG Lactic Acid 3.0 H Carboxyhemoglobin Total Hemoglobin Potassium 3.1 L Carbon Dioxide 20 L Anion Gap 20.0 H Glucose 129 H Calcium 6.5 L Ferritin GGT Lactate Dehydrogenase C-Reactive Protein Total Protein Albumin Meds: Medications Acetaminophen (Tylenol) 650 mg PO Q4-6HP PRN; Protocol PRN Reason: Per Pain Protocol/Fever > 101 Bisacodyl (Dulcolax) 10 mg CO Q2-3DAYS PRN PRN Reason: Constipation Budesonide (Pulmicort) 2 puff INH BID [facility] Last Admin: 07/21/20 08:27 Dose: 2 puff Documented by: Calcitriol (Rocaltrol) 0.25 mcg PO BID [facility] Last Admin: 07/21/20 08:20 Dose: 0.25 mcg Documented by: Dexamethasone (Decadron) 6 mg PO DAILY [facility] Last Admin: 07/21/20 08:21 Dose: 6 mg Documented by: Docusate Sodium (Colace) 100 mg PO BID [facility] Last Admin: 07/21/20 08:02 Dose: Not Given Documented by: Enoxaparin Sodium (Lovenox) 40 mg SQ DAILY [facility] Last Admin: 07/21/20 08:20 Dose: 40 mg Documented by: Guaifenesin/Codeine Phosphate (Robitussin Ac) 10 ml PO Q4HP PRN PRN Reason: Cough Hydralazine HCl (Apresoline) 10 mg IV Q4-6HP PRN PRN Reason: Hypertension Azithromycin 500 mg/ Dextrose 250 mls @ 250 mls/hr IV Q24H [facility]; Protocol Stop: 07/22/20 00:39 Last Infusion: 07/20/20 16:43 Dose: Infused Documented by: Ceftriaxone Sodium 2 gm/ (Dextrose) 50 mls @ 100 mls/hr IV Q24H [facility]; Protocol Last Admin: 07/21/20 08:20 Dose: 100 mls/hr Documented by: Potassium Chloride 40 meq/ (Dextrose) 520 mls @ 130 mls/hr IV UD PRN PRN Reason: K+ = or < 3.5 Acetaminophen (Ofirmev) 650 mg in 65 mls @ 130 mls/hr IV Q6HP PRN; Protocol PRN Reason: Per Pain Protocol/Fever > 101 Magnesium Sulfate (Magnesium Sulfate) 2 gm in 50 mls @ 50 mls/hr IV UD PRN PRN Reason: MG = or < 1.7 Lactated Ringer's (Lactated Ringers) 1,000 mls @ 75 mls/hr IV .[id number] [facility] Stop: 07/22/20 00:59 Last Admin: 07/21/20 05:56 Dose: 75 mls/hr Documented by: Calcium Gluconate 9.3 meq/ (Dextrose) 120 mls @ 120 mls/hr IV DAILYP PRN PRN Reason: CA <7.5 REMDESIVIR 100 mg/ Sodium (Chloride) 250 mls @ 500 mls/hr IV Q24H [facility] Stop: 07/23/20 13:29 Last Infusion: 07/20/20 13:46 Dose: Infused Documented by: Iron Carb/Multivit/Legal Document Assistant/Folic Acid (Multivitamin W/Minerals) 1 tab PO DAILY [facility] Last Admin: 07/21/20 08:20 Dose: 1 tab Documented by: Levothyroxine Sodium (Synthroid) 125 mcg PO QAMAC [facility] Last Admin: 07/21/20 07:20 Dose: 125 mcg Documented by: Liothyronine Sodium (Cytomel) 10 mcg PO QAMAC [facility] Last Admin: 07/21/20 07:20 Dose: 10 mcg Documented by: Lorazepam (Ativan) 0.5 mg PO Q6HP PRN PRN Reason: ANXIETY/SEDATION Melatonin (Melatonin 3mg Tablet) 3 mg PO HSP PRN PRN Reason: Insomnia Metoprolol Tartrate (Lopressor) 5 mg IV Q5M PRN PRN Reason: Heart Rate > 140 bpm Ondansetron HCl (Zofran Odt) 4 mg SL Q4-6HP PRN; Protocol PRN Reason: Nausea And Vomiting Ondansetron HCl (Zofran) 4 mg IV Q4-6HP PRN; Protocol PRN Reason: Nausea And Vomiting Polyethylene Glycol (Miralax) 17 gm PO DAILYP PRN PRN Reason: Constipation Potassium Chloride (Klor-Con) 40 meq PO DAILYP PRN PRN Reason: K+ < 3.5 Senna/Docusate Sodium (Senna Plus Tablet) 1 tab PO HS [facility] Last Admin: 07/20/20 20:03 Dose: Not Given Documented by: Sodium Chloride (Saline Flush) 10 ml IV Q8 [facility] Last Admin: 07/21/20 05:02 Dose: Not Given Documented by: Tiotropium [place] (Spiriva) 18 mcg INH DAILY [facility] Last Admin: 07/21/20 08:27 Dose: 18 mcg Documented by: ABG Interpretation ABG results: 07/19/20 20:28 ABG Methemoglobin 0 L VBG pH 7.47 VBG pCO2 26.3 VBG pO2 146.8 VBG HCO3 18.8 VBG Total CO2 19.6 VBG O2 Saturation 94.1 VBG Base Excess -4 L A/P Narrative A/P Narrative: * COVID 19 Pneumonia, clinical deterioration noted with increasing need for oxygen. Currently on noninvasive mechanical ventilation. Bilateral chest infiltrates on imaging. Continue remdesivir/dexamethasone/COVID-19 precaution. Thrombosis prophylaxis twice daily Lovenox * Acute respiratory failure with hypoxia-on noninvasive mechanical ventilation. Wean oxygen as tolerated. Large AA gradient * hypokalemia-oral replacement, potassium 3.2 * Hypocalcemia continue oral replacement * Hypothyroidism continue thyroxine * Full code * Prophylaxis twice daily Lovenox Plan * Empiric antibiotic coverage/Remdesivir/dexamethasone/thrombosis prophylaxis * Follow coag/inflammatory marker * Electrolyte replacement * Nutrition support/directed therapies Critical care time over 35 minutes QUALITY VTE Deep Vein Thrombosis/Pulmonary Embolism Present on Admission: No
[2020-07-21] MEDS: REMDESIVIR 100 MG in 0.9 % SODIUM CHLORIDE 250 ML IV SCH (10:56)
[2020-07-21] MEDS: 0.9 % SODIUM CHLORIDE 1,000 ML IV SCH (10:57)
[2020-07-21] MEDS: AZITHROMYCIN 500 MG in DEXTROSE 5% IN WATER 250 ML IV SCH (14:46)
[2020-07-21] MEDS: POTASSIUM CHLORIDE 20 MEQ PACKET PO PRN (17:10)
[2020-07-21] MEDS: SENNOSIDES/DOCUSATE SODIUM 1 TAB TABLET PO SCH (21:02)
[2020-07-22] MEDS: 0.9 % SODIUM CHLORIDE 10 ML SYRINGE IV SCH ×3 (05:42→20:18)
[2020-07-22 07:12] LABS: ALT/SGPT 16 U/L (<40); AST/SGOT 20 U/L (<32); Albumin 2.7 gm/dL (3.2-5.2); Alkaline Phosphatase 43 U/L (39-117); Bilirubin,Direct < 0.2 mg/dL (<0.3); Bilirubin,Total 0.2 mg/dL (0.1-1.0); Blood Urea Nitrogen 13 mg/dL (6-20); Calcium 6.1 mg/dL (8.6-10.4); Carbon Dioxide 22 mmol/L (22-30); Chloride 111 mmol/L (96-108); Globulin 2.6 gm/dL (2.2-3.7); Glomerular Filtration Rate 111; Glucose 100 mg/dL (70-105); Lactate Dehydrogenase 404 U/L (135-225); Phosphorous 3.7 mg/dL (2.5-4.5); Triglycerides 38 mg/dL (<150)
[2020-07-22 07:27] LABS: Basophils # (Auto) 0.03 K/mcL (0.00-0.20); Basophils % (Auto) 0.3 % (0.0-2.0); Eosinophils # (Auto) 0.01 K/mcL (0.00-0.70); Eosinophils % (Auto) 0.1 % (0.0-7.0); Hematocrit 31.4 % (36.0-48.0); Hemoglobin 10.1 g/dL (12.0-15.0); Lymphocytes # (Auto) 2.29 K/mcL (1.50-4.80); Mean Cell Volume 80.9 fL (80.0-100.0); Mean Corpuscular HGB Conc 32.2 g/dL (31.0-36.0); Mean Platelet Volume 9.4 fL (7.4-10.4); Monocytes # (Auto) 0.99 K/mcL (0.10-0.90); Monocytes % (Auto) 8.6 % (1.0-12.0); Platelet Count 397 K/mcL (140-440); RBC 3.88 M/mcL (4.00-5.20); Red Cell Distribution Width 16.9 % (11.5-14.5); WBC 11.5 K/mcL (4.5-11.0)
[2020-07-22] MEDS: LIOTHYRONINE 5 MCG TABLET PO SCH (07:28)
[2020-07-22] MEDS: LEVOTHYROXINE 125 MCG TABLET PO SCH (07:28)
[2020-07-22] MEDS: cefTRIAXone 2 GM in DEXTROSE 5% IN WATER 50 ML IV SCH (08:32)
[2020-07-22] MEDS: CALCITRIOL 0.25 MCG CAPSULE PO SCH ×2 (08:33→20:17)
[2020-07-22] MEDS: ENOXAPARIN 40 MG/0.4 ML SYRINGE SQ SCH ×2 (08:33→20:17)
[2020-07-22] MEDS: DOCUSATE SODIUM 100 MG CAPSULE PO SCH ×2 (08:33→20:15)
[2020-07-22] MEDS: DEXAMETHASONE 4 MG TABLET PO SCH (08:33)
[2020-07-22] MEDS: MULTIVIT,THER IRON,CA,FA & MIN 1 TABLET PO SCH (08:33)
[2020-07-22] MEDS: BUDESONIDE 1 PUFF INHALER INH SCH ×2 (08:50→20:17)
[2020-07-22] MEDS: TIOTROPIUM BROMIDE 18 MCG INHALANT INH SCH (08:50)
--- NOTE | 2020-07-22 12:29 | Internal Med Progress Note ---
SUBJECTIVE Subjective Patient information: Note initiated : 07/22/20 at 12:25 pm Service Date, if different from initiated Date: [] Patient: Katey Maria a 45 y/o F admitted on 07/19/20 for SOB, covid positive. 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 Patient is and lives with her who was recently diagnosed with Covid. Initial work-up in the ER was consistent with Covid pneumonia/white count 12,000. Patient was started on remdesivir/steroid. Hospital service was consulted. At the time of evaluation patient is on 3 L oxygen. She is anxious but able to talk in full sentences without significant respiratory distress. She denies headache, photophobia, nausea, diarrhea, dysuria, chest pain or productive cough. She does endorse to fatigue malaise weakness and fever. 07/20-patient currently on 5 L oxygen with worsening respiratory status since previous night. Currently on remdesivir/dexamethasone. Feels anxious. No telemetry events. Continue COVID-19 precautions. White count 8.5. Stable hemodynamics. Potassium up from 3.1-3.7. Calcium 5.7 on replacement. Creatinine 1.8. Later in the evening patient became profoundly short of breath and requiring 10 days oxygen. Patient transition to noninvasive ventilation. Clear worsening of Covid pneumonia noted. Now on 55% FiO2 on noninvasive ventilation. Continue remdesivir/dexamethasone. Consider transfer to tertiary center if clinical deterioration noted. Patient critically ill with [place] 2 score 15. 07/21-patient overnight on noninvasive mechanical ventilation. Currently on 40% FiO2. Feels a lot better. Less things anxious. White count 9.9. D-dimer low, potassium 3.2 on replacement, calcium 6.1 on replacement, ferritin 359, CRP 13.5. Continue twice daily thrombosis prophylaxis./Antibiotics/remdesivir dexamethasone 07/22- Pt on 40% FiO2 non invasive ventilation, on 9L O2 when off NIV. WBC 11.5, afebrile, Feel better than previous day, Continue remdesivir Constitutional Vitals: Vital Signs Temp Pulse Resp BP Pulse Ox 98.4 F 63 32 H 126/94 90 07/22/20 04:00 07/22/20 10:57 07/22/20 10:57 07/22/20 10:01 07/22/20 10:57 Period Temp Pulse Resp BP Sys/Cobb Pulse Ox Last 24 Hr 97.3 F-98.6 F 49-75 18-32 116-134/76-96 90-97 Intake and Output 07/21/20 07/22/20 07/22/20 21:59 05:59 13:59 Intake Total 7443 115 6811 Output Total 250 450 175 Balance 1196 70 825 Weight 90.991 kg alert On NIV 40% Fio2 No anxiety Intake & Output: Intake & Output 07/21/20 07/22/20 07/22/20 21:59 05:59 13:59 Intake Total 2528 178 6747 Output Total 250 450 175 Balance 1196 70 825 Weight 90.991 kg Intake: IV 966 1000 Zithromax 500 mg In Dextrose 5% 250 in Water 250 ml @ 250 mls/hr IV Q24H [facility] Rx#:[id number] Lactated Ringers 1,000 ml @ 75 716 1000 mls/hr IV .[id number] [facility] Rx#: [id number] Oral 480 520 Output: Void Amount 250 450 175 Other: Meal Dinner Breakfast Percent of Meal Consumed 75% 25% Urine Appearance Clear Clear Clear Urine Color Bright Yellow Pale Bright Yellow Straw Urine Odor Normal Stool Size Large Stool Color Brown Green Stool Consistency Soft Loose # Voids 1 1 # Bowel Movements 1 OBJ DATA Labs CBC & Chem 7: 07/22/20 05:00 07/22/20 05:00 Labs: Abnormal Lab Results 07/22/20 07/22/20 07/21/20 05:00 05:00 05:00 WBC 11.5 H RBC 3.88 L Hgb 10.1 L Hct 31.4 L MCV MCH RDW 16.9 H Plt Count Neut % (Auto) Lymph % (Auto) Lymph # (Auto) [place] # (Auto) 0.99 H Absolute Neutrophils 8.15 H D-Dimer ABG Methemoglobin VBG Base Excess VBG Lactic Acid Carboxyhemoglobin Total Hemoglobin Potassium 3.2 L Chloride 111 H Carbon Dioxide 21 L Anion Gap Glucose 127 H Calcium 6.1 L 6.1 L Ferritin GGT 40 H Lactate Dehydrogenase 404 H 400 H C-Reactive Protein Total Protein 5.3 L 5.6 L Albumin 2.7 L 2.9 L 07/21/20 07/21/20 07/20/20 05:00 05:00 05:01 WBC RBC Hgb 10.7 L Hct 33.4 L MCV MCH 25.9 L RDW 16.7 H Plt Count Neut % (Auto) Lymph % (Auto) 14.8 L Lymph # (Auto) 1.47 L [place]oca # (Auto) Absolute Neutrophils D-Dimer < 0.27 L ABG Methemoglobin VBG Base Excess VBG Lactic Acid Carboxyhemoglobin Total Hemoglobin Potassium Chloride Carbon Dioxide 20 L Anion Gap 17.0 H Glucose 199 H Calcium 5.7 L* Ferritin 359.5 H GGT 47 H Lactate Dehydrogenase 440 H C-Reactive Protein 13.50 H Total Protein Albumin 07/20/20 07/19/20 07/19/20 05:01 20:28 20:12 WBC RBC Hgb 11.6 L Hct 35.7 L MCV 79.7 L MCH 25.9 L RDW 16.5 H Plt Count Neut % (Auto) 82.9 H Lymph % (Auto) 9.4 L Lymph # (Auto) 0.80 L [place] # (Auto) Absolute Neutrophils D-Dimer ABG Methemoglobin 0 L VBG Base Excess -4 L VBG Lactic Acid 3.0 H Carboxyhemoglobin 4.9 H Total Hemoglobin 11.5 L Potassium Chloride Carbon Dioxide Anion Gap Glucose Calcium Ferritin GGT Lactate Dehydrogenase C-Reactive Protein Total Protein Albumin 07/19/20 07/19/20 20:12 20:12 WBC 12.0 H RBC Hgb Hct MCV 79.1 L MCH 25.6 L RDW 16.4 H Plt Count 448 H Neut % (Auto) 84.0 H Lymph % (Auto) 9.6 L Lymph # (Auto) 1.15 L [place] # (Auto) Absolute Neutrophils 10.08 H D-Dimer ABG Methemoglobin VBG Base Excess VBG Lactic Acid Carboxyhemoglobin Total Hemoglobin Potassium 3.1 L Chloride Carbon Dioxide 20 L Anion Gap 20.0 H Glucose 129 H Calcium 6.5 L Ferritin GGT Lactate Dehydrogenase C-Reactive Protein Total Protein Albumin Meds: Medications Acetaminophen (Tylenol) 650 mg PO Q4-6HP PRN; Protocol PRN Reason: Per Pain Protocol/Fever > 101 Bisacodyl (Dulcolax) 10 mg SD Q2-3DAYS PRN PRN Reason: Constipation Budesonide (Pulmicort) 2 puff INH BID [facility] Last Admin: 07/22/20 08:50 Dose: 2 puff Documented by: Calcitriol (Rocaltrol) 0.25 mcg PO BID [facility] Last Admin: 07/22/20 08:33 Dose: 0.25 mcg Documented by: Dexamethasone (Decadron) 6 mg PO DAILY [facility] Last Admin: 07/22/20 08:33 Dose: 6 mg Documented by: Docusate Sodium (Colace) 100 mg PO BID [facility] Last Admin: 07/22/20 08:33 Dose: Not Given Documented by: Enoxaparin Sodium (Lovenox) 40 mg SQ BID [facility] Last Admin: 07/22/20 08:33 Dose: 40 mg Documented by: Guaifenesin/Codeine Phosphate (Robitussin Ac) 10 ml PO Q4HP PRN PRN Reason: Cough Hydralazine HCl (Apresoline) 10 mg IV Q4-6HP PRN PRN Reason: Hypertension Ceftriaxone Sodium 2 gm/ (Dextrose) 50 mls @ 100 mls/hr IV Q24H [facility]; Protocol Last Admin: 07/22/20 08:32 Dose: 100 mls/hr Documented by: Potassium Chloride 40 meq/ (Dextrose) 520 mls @ 130 mls/hr IV UD PRN PRN Reason: K+ = or < 3.5 Acetaminophen (Ofirmev) 650 mg in 65 mls @ 130 mls/hr IV Q6HP PRN; Protocol PRN Reason: Per Pain Protocol/Fever > 101 Magnesium Sulfate (Magnesium Sulfate) 2 gm in 50 mls @ 50 mls/hr IV UD PRN PRN Reason: MG = or < 1.7 Calcium Gluconate 9.3 meq/ (Dextrose) 120 mls @ 120 mls/hr IV DAILYP PRN PRN Reason: CA <7.5 REMDESIVIR 100 mg/ Sodium (Chloride) 250 mls @ 500 mls/hr IV Q24H [facility] Stop: 07/23/20 13:29 Last Infusion: 07/21/20 12:35 Dose: Infused Documented by: Iron Carb/Multivit/[place]/Folic Acid (Multivitamin W/Minerals) 1 tab PO DAILY [facility] Last Admin: 07/22/20 08:33 Dose: 1 tab Documented by: [facility] Admin: 07/22/20 07:28 Dose: 125 mcg Documented by: Liothyronine Sodium (Cytomel) 10 mcg PO [facility] Last Admin: 07/22/20 07:28 Dose: 10 mcg Documented by: Lorazepam (Ativan) 0.5 mg PO Q6HP PRN PRN Reason: ANXIETY/SEDATION Melatonin (Melatonin 3mg Tablet) 3 mg PO HSP PRN PRN Reason: Insomnia Metoprolol Tartrate (Lopressor) 5 mg IV Q5M PRN PRN Reason: Heart Rate > 140 bpm Ondansetron HCl (Zofran Odt) 4 mg SL Q4-6HP PRN; Protocol PRN Reason: Nausea And Vomiting Ondansetron HCl (Zofran) 4 mg IV Q4-6HP PRN; Protocol PRN Reason: Nausea And Vomiting Polyethylene Glycol (Miralax) 17 gm PO DAILYP PRN PRN Reason: Constipation Potassium Chloride (Klor-Con) 40 meq PO DAILYP PRN PRN Reason: K+ < 3.5 Last Admin: 07/21/20 17:10 Dose: 40 meq Documented by: Senna/Docusate Sodium (Senna Plus Tablet) 1 tab PO HS [facility] Last Admin: 07/21/20 21:02 Dose: Not Given Documented by: Sodium Chloride (Saline Flush) 10 ml IV Q8 [facility] Last Admin: 07/22/20 05:42 Dose: Not Given Documented by: Tiotropium [place] (Spiriva) 18 mcg INH DAILY [facility] Last Admin: 07/22/20 08:50 Dose: 18 mcg Documented by: ABG Interpretation ABG results: 07/19/20 20:28 ABG Methemoglobin 0 L VBG pH 7.47 VBG pCO2 26.3 VBG pO2 146.8 VBG HCO3 18.8 VBG Total CO2 19.6 VBG O2 Saturation 94.1 VBG Base Excess -4 L A/P Narrative A/P Narrative: * COVID 19 Pneumonia, On 40% NIV. Bilateral chest infiltrates on imaging with interval worsning. Continue remdesivir/dexamethasone/COVID-19 precaution. BI D Lovenox * Acute respiratory failure with hypoxia-on noninvasive mechanical ventilation. Wean oxygen as tolerated. Large AA gradient * hypokalemia-oral replacement * Hypocalcemia continue oral replacement * Hypothyroidism continue thyroxine * Full code * Prophylaxis twice daily Lovenox Plan * Continue Remdesivir/dexamethasone/thrombosis prophylaxis * Wean NIV and O2 as tolerated * Electrolyte replacement as indicated * Nutrition support/directed therapies Critical care time over 35 minutes Time Spent With Patient Time: Total time spent is greater than 50% in coordination of care (as documented) at patient's floor/unit and/or counseling patient: QUALITY VTE Deep Vein Thrombosis/Pulmonary Embolism Present on Admission: No
[2020-07-22] MEDS: REMDESIVIR 100 MG in 0.9 % SODIUM CHLORIDE 250 ML IV SCH (13:11)
[2020-07-22] MEDS: SENNOSIDES/DOCUSATE SODIUM 1 TAB TABLET PO SCH (20:15)
[2020-07-23] MEDS: 0.9 % SODIUM CHLORIDE 10 ML SYRINGE IV SCH ×3 (05:59→20:30)
[2020-07-23 07:24] LABS: Basophils # (Auto) 0.03 K/mcL (0.00-0.20); Basophils % (Auto) 0.3 % (0.0-2.0); Eosinophils # (Auto) 0.03 K/mcL (0.00-0.70); Eosinophils % (Auto) 0.3 % (0.0-7.0); Hemoglobin 10.3 g/dL (12.0-15.0); Lymphocytes # (Auto) 2.58 K/mcL (1.50-4.80); Lymphocytes % (Auto) 24.3 % (15.0-49.0); Mean Cell Volume 79.6 fL (80.0-100.0); Mean Corpuscular HGB Conc 32.2 g/dL (31.0-36.0); Mean Platelet Volume 9.2 fL (7.4-10.4); Monocytes # (Auto) 0.85 K/mcL (0.10-0.90); Neutrophils % (Auto) 67.1 % (38.0-78.0); Platelet Count 419 K/mcL (140-440); RBC 4.02 M/mcL (4.00-5.20); Red Cell Distribution Width 16.1 % (11.5-14.5); WBC 10.6 K/mcL (4.5-11.0)
[2020-07-23] MEDS: LIOTHYRONINE 5 MCG TABLET PO SCH (07:43)
[2020-07-23] MEDS: LEVOTHYROXINE 125 MCG TABLET PO SCH (07:43)
[2020-07-23] MEDS: DOCUSATE SODIUM 100 MG CAPSULE PO SCH ×2 (07:46→20:31)
[2020-07-23] MEDS: CALCITRIOL 0.25 MCG CAPSULE PO SCH ×2 (08:38→20:30)
[2020-07-23] MEDS: MULTIVIT,THER IRON,CA,FA & MIN 1 TABLET PO SCH (08:38)
[2020-07-23] MEDS: DEXAMETHASONE 4 MG TABLET PO SCH (08:38)
[2020-07-23] MEDS: BUDESONIDE 1 PUFF INHALER INH SCH ×2 (08:38→20:31)
[2020-07-23] MEDS: TIOTROPIUM BROMIDE 18 MCG INHALANT INH SCH (08:38)
[2020-07-23] MEDS: cefTRIAXone 2 GM in DEXTROSE 5% IN WATER 50 ML IV SCH (08:38)
[2020-07-23] MEDS: ENOXAPARIN 40 MG/0.4 ML SYRINGE SQ SCH ×2 (08:39→20:30)
--- NOTE | 2020-07-23 08:55 | XRay Report ---
HISTORY: COVID pneumonia FINDINGS: There are moderately severe diffuse alveolar infiltrates throughout both lungs, left worse than right. These have progressively become worse compared with the prior exams on 07/19 and 07/21/2020. No pleural effusion or pneumothorax are present. Heart size is within upper limits of normal. IMPRESSION: Worsening bilateral pneumonia Interpreted and Authenticated by: Celestino Brumfield 07/23/20
[2020-07-23 09:05] LABS: ALT/SGPT 15 U/L (<40); AST/SGOT 17 U/L (<32); Albumin 2.7 gm/dL (3.2-5.2); Alkaline Phosphatase 44 U/L (39-117); Bilirubin,Direct < 0.2 mg/dL (<0.3); Bilirubin,Total 0.2 mg/dL (0.1-1.0); Blood Urea Nitrogen 11 mg/dL (6-20); Carbon Dioxide 23 mmol/L (22-30); Chloride 106 mmol/L (96-108); Globulin 2.7 gm/dL (2.2-3.7); Glomerular Filtration Rate 118; Glucose 98 mg/dL (70-105); Lactate Dehydrogenase 387 U/L (135-225); Phosphorous 4.6 mg/dL (2.5-4.5); Triglycerides 26 mg/dL (<150); Uric Acid 4.6 mg/dL (2.5-8.0)
--- NOTE | 2020-07-23 09:18 | Internal Med Progress Note ---
SUBJECTIVE Subjective Patient information: Note initiated : 07/23/20 at 9:13 am Service Date, if different from initiated Date: [] Patient: Katey Maria a 45 y/o F admitted on 07/19/20 for SOB, covid positive. 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 Patient is and lives with her who was recently diagnosed with Covid. Initial work-up in the ER was consistent with Covid pneumonia/white count 12,000. Patient was started on remdesivir/steroid. Hospital service was consulted. At the time of evaluation patient is on 3 L oxygen. She is anxious but able to talk in full sentences without significant respiratory distress. She denies headache, photophobia, nausea, diarrhea, dysuria, chest pain or productive cough. She does endorse to fatigue malaise weakness and fever. 07/20-patient currently on 5 L oxygen with worsening respiratory status since previous night. Currently on remdesivir/dexamethasone. Feels anxious. No telemetry events. Continue COVID-19 precautions. White count 8.5. Stable hemodynamics. Potassium up from 3.1-3.7. Calcium 5.7 on replacement. Creatinine 1.8. Later in the evening patient became profoundly short of breath and requiring 10 days oxygen. Patient transition to noninvasive ventilation. Clear worsening of Covid pneumonia noted. Now on 55% FiO2 on noninvasive ventilation. Continue remdesivir/dexamethasone. Consider transfer to tertiary center if clinical deterioration noted. Patient critically ill with [place] 2 score 15. 07/21-patient overnight on noninvasive mechanical ventilation. Currently on 40% FiO2. Feels a lot better. Less things anxious. White count 9.9. D-dimer low, potassium 3.2 on replacement, calcium 6.1 on replacement, ferritin 359, CRP 13.5. Continue twice daily thrombosis prophylaxis./Antibiotics/remdesivir dexamethasone 07/22- Pt on 40% FiO2 non invasive ventilation, on 9L O2 when off NIV. WBC 11.5, afebrile, Feel better than previous day, Continue remdesivir 07/23-interval worsening chest imaging with bilateral pneumonia. Remains on 40% FiO2/8 L oxygen nasal cannula while off noninvasive ventilation. Continue remdesivir/dexamethasone. Stable hemodynamics. White count 10.6. Continue thrombosis prophylaxis Constitutional Vitals: Vital Signs Temp Pulse Resp BP Pulse Ox 97.1 F 53 L 21 125/91 97 07/23/20 02:01 07/23/20 06:00 07/23/20 05:00 07/23/20 06:00 07/23/20 06:00 Period Temp Pulse Resp BP Sys/Cobb Pulse Ox Last 24 Hr 97.1 F-97.9 F 46-74 21-33 102-146/78-101 90-97 Intake and Output 07/22/20 07/23/20 07/23/20 21:59 05:59 13:59 Intake Total 550 0 300 Output Total 400 100 Balance 150 -100 300 Weight 91.172 kg Alert and in good spirits Nonlabored breathing Minimal anxiety Nondistended abdomen On 8 L oxygen this morning Intake & Output: Intake & Output 07/22/20 07/23/20 07/23/20 21:59 05:59 13:59 Intake Total 550 0 300 Output Total 400 100 Balance 150 -100 300 Weight 91.172 kg Intake: IV 250 Veklury 100 mg In Sodium 250 Chloride 0.9% 250 ml @ 500 mls/ hr IV Q24H [facility] Rx#:[id number] Oral 300 0 300 Output: Void Amount 400 100 Other: Meal Dinner Breakfast Percent of Meal Consumed 100% 100% Feeding Ability Independent Urine Appearance Clear Clear Clear Urine Color Bright Yellow Bright Yellow Bright Yellow Urine Odor Normal Normal Stool Size Small Moderate Small Stool Color Brown Brown Stool Consistency Loose Liquid Watery # Voids 1 1 1 # Bowel Movements 1 OBJ DATA Labs CBC & Chem 7: 07/23/20 05:12 07/23/20 05:12 Labs: Abnormal Lab Results 07/23/20 07/23/20 07/22/20 05:12 05:12 05:00 WBC RBC Hgb 10.3 L Hct 32.0 L MCV 79.6 L MCH 25.6 L RDW 16.1 H Lymph % (Auto) Lymph # (Auto) [place] # (Auto) Absolute Neutrophils D-Dimer Potassium Chloride 111 H Carbon Dioxide Creatinine 0.5 L Glucose Calcium 6.0 L 6.1 L Phosphorus 4.6 H GGT Lactate Dehydrogenase 387 H 404 H Total Protein 5.4 L 5.3 L Albumin 2.7 L 2.7 L 11/27/20 11/26/20 11/26/20 05:00 05:00 05:00 WBC 11.5 H RBC 3.88 L Hgb 10.1 L Hct 31.4 L MCV MCH RDW 16.9 H Lymph % (Auto) Lymph # (Auto) [place] # (Auto) 0.99 H Absolute Neutrophils 8.15 H D-Dimer < 0.27 L Potassium 3.2 L Chloride Carbon Dioxide 21 L Creatinine Glucose 127 H Calcium 6.1 L Phosphorus GGT 40 H Lactate Dehydrogenase 400 H Total Protein 5.6 L Albumin 2.9 L 07/21/20 05:00 WBC RBC Hgb 10.7 L Hct 33.4 L MCV MCH 25.9 L RDW 16.7 H Lymph % (Auto) 14.8 L Lymph # (Auto) 1.47 L [place] # (Auto) Absolute Neutrophils D-Dimer Potassium Chloride Carbon Dioxide Creatinine Glucose Calcium Phosphorus GGT Lactate Dehydrogenase Total Protein Albumin Meds: Medications Acetaminophen (Tylenol) 650 mg PO Q4-6HP PRN; Protocol PRN Reason: Per Pain Protocol/Fever > 101 Bisacodyl (Dulcolax) 10 mg [place] Q2-3DAYS PRN PRN Reason: Constipation Budesonide (Pulmicort) 2 puff INH BID [facility] Last Admin: 07/23/20 08:38 Dose: 2 puff Documented by: Calcitriol (Rocaltrol) 0.25 mcg PO BID [facility] Last Admin: 07/23/20 08:38 Dose: 0.25 mcg Documented by: Dexamethasone (Decadron) 6 mg PO DAILY [facility] Last Admin: 07/23/20 08:38 Dose: 6 mg Documented by: Docusate Sodium (Colace) 100 mg PO BID [facility] Last Admin: 07/23/20 07:46 Dose: Not Given Documented by: Enoxaparin Sodium (Lovenox) 40 mg SQ BID [facility] Last Admin: 07/23/20 08:39 Dose: 40 mg Documented by: Guaifenesin/Codeine Phosphate (Robitussin Ac) 10 ml PO Q4HP PRN PRN Reason: Cough Hydralazine HCl (Apresoline) 10 mg IV Q4-6HP PRN PRN Reason: Hypertension Ceftriaxone Sodium 2 gm/ (Dextrose) 50 mls @ 100 mls/hr IV Q24H [facility]; Protocol Last Admin: 07/23/20 08:38 Dose: 100 mls/hr Documented by: Potassium Chloride 40 meq/ (Dextrose) 520 mls @ 130 mls/hr IV UD PRN PRN Reason: K+ = or < 3.5 Acetaminophen (Ofirmev) 650 mg in 65 mls @ 130 mls/hr IV Q6HP PRN; Protocol PRN Reason: Per Pain Protocol/Fever > 101 Magnesium Sulfate (Magnesium Sulfate) 2 gm in 50 mls @ 50 mls/hr IV UD PRN PRN Reason: MG = or < 1.7 Calcium Gluconate 9.3 meq/ (Dextrose) 120 mls @ 120 mls/hr IV DAILYP PRN PRN Reason: CA <7.5 REMDESIVIR 100 mg/ Sodium (Chloride) 250 mls @ 500 mls/hr IV Q24H [facility] Stop: 07/23/20 13:29 Last Infusion: 07/22/20 14:30 Dose: Infused Documented by: Iron Carb/Multivit/[place]/Folic Acid (Multivitamin W/Minerals) 1 tab PO DAILY [facility] Last Admin: 07/23/20 08:38 Dose: 1 tab Documented by: Levothyroxine Sodium (Synthroid) 125 mcg PO [facility] Last Admin: 07/23/20 07:43 Dose: 125 mcg Documented by: Liothyronine S[facility] ([facility]omel) [facility] Last Admin: 07/23/20 07:43 Dose: 10 mcg Documented by: Lorazepam (Ativan) 0.5 mg PO Q6HP PRN PRN Reason: ANXIETY/SEDATION Melatonin (Melatonin 3mg Tablet) 3 mg PO HSP PRN PRN Reason: Insomnia Metoprolol Tartrate (Lopressor) 5 mg IV Q5M PRN PRN Reason: Heart Rate > 140 bpm Ondansetron HCl (Zofran Odt) 4 mg SL Q4-6HP PRN; Protocol PRN Reason: Nausea And Vomiting Ondansetron HCl (Zofran) 4 mg IV Q4-6HP PRN; Protocol PRN Reason: Nausea And Vomiting Polyethylene Glycol (Miralax) 17 gm PO DAILYP PRN PRN Reason: Constipation Potassium Chloride (Klor-Con) 40 meq PO DAILYP PRN PRN Reason: K+ < 3.5 Last Admin: 07/21/20 17:10 Dose: 40 meq Documented by: Senna/Docusate Sodium (Senna Plus Tablet) 1 tab PO HS [facility] Last Admin: 07/22/20 20:15 Dose: Not Given Documented by: Sodium Chloride (Saline Flush) 10 ml IV Q8 [facility] Last Admin: 07/23/20 05:59 Dose: 10 ml Documented by: Tiotropium [place] (Spiriva) 18 mcg INH DAILY [facility] Last Admin: 07/23/20 08:38 Dose: 18 mcg Documented by: ABG Interpretation ABG results: 07/19/20 20:28 ABG Methemoglobin 0 L VBG pH 7.47 VBG pCO2 26.3 VBG pO2 146.8 VBG HCO3 18.8 VBG Total CO2 19.6 VBG O2 Saturation 94.1 VBG Base Excess -4 L A/P Narrative A/P Narrative: * COVID 19 Pneumonia, worsening on interval chest imaging with bilateral infiltrates, continuing on 40% NIV. Day 4 remdesivir/dexamethasone/COVID-19 precaution. BID Lovenox * ALI/Acute respiratory failure with hypoxia-continue noninvasive mechanical ventilation. Serial imaging/blood gas. Wean oxygen as tolerated. Continues to demonstrate large AA gradient with ALI * hypokalemia-resolved with replacement * Hypocalcemia continue oral replacement * Hypothyroidism continue home dose thyroxine * Full code * Prophylaxis BID Lovenox Plan * Continue Remdesivir/dexamethasone * Wean NIV and O2 as tolerated * Continue electrolyte replacement as indicated * Nutrition support/directed therapies Critical care time over 35 minutes on management of acute lung injury/hypoxic story failure/NIV management based on ABG/imaging Time Spent With Patient Time: Total time spent is greater than 50% in coordination of care (as documented) at patient's floor/unit and/or counseling patient: QUALITY VTE Deep Vein Thrombosis/Pulmonary Embolism Present on Admission: No
[2020-07-23] MEDS: REMDESIVIR 100 MG in 0.9 % SODIUM CHLORIDE 250 ML IV SCH (12:07)
--- NOTE | 2020-07-23 13:00 | Internal Med Progress Note ---
SUBJECTIVE Subjective Patient information: Note initiated : 07/23/20 at 12:55 pm Service Date, if different from initiated Date: [] Patient: Katey Maria a 45 y/o F admitted on 07/19/20 for SOB, covid positive. 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 Patient is and lives with her who was recently diagnosed with Covid. Initial work-up in the ER was consistent with Covid pneumonia/white count 12,000 . Patient was started on remdesivir/steroid. Hospital service was consulted. At the time of evaluation patient is on 3 L oxygen. She is anxious but able to talk in full sentences without significant respiratory distress. She denies headache, photophobia, nausea, diarrhea, dysuria, chest pain or productive cough. She does endorse to fatigue malaise weakness and fever. 07/20-patient currently on 5 L oxygen with worsening respiratory status since previous night. Currently on remdesivir/dexamethasone. Feels anxious. No telemetry events. Continue COVID-19 precautions. White count 8.5. Stable hemodynamics. Potassium up from 3.1-3.7. Calcium 5.7 on replacement. Creatinine 1.8. Later in the evening patient became profoundly short of breath and requiring 10 days oxygen. Patient transition to noninvasive ventilation. Clear worsening of Covid pneumonia noted. Now on 55% FiO2 on noninvasive ventilation. Continue remdesivir/dexamethasone. Consider transfer to tertiary center if clinical deterioration noted. Patient critically ill with [place] 2 score 15. 07/21-patient overnight on noninvasive mechanical ventilation. Currently on 40% FiO2. Feels a lot better. Less things anxious. White count 9.9. D-dimer low, potassium 3.2 on replacement, calcium 6.1 on replacement, ferritin 359, CRP 13.5. Continue twice daily thrombosis prophylaxis./Antibiotics/remdesivir dexamethasone 07/22- Pt on 40% FiO2 non invasive ventilation, on 9L O2 when off NIV. WBC 11.5, afebrile, Feel better than previous day, Continue remdesivir 07/23-interval worsening chest imaging with bilateral pneumonia. Remains on 40% FiO2/8 L oxygen nasal cannula while off noninvasive ventilation. Continue remdesivir/dexamethasone. Stable hemodynamics. White count 10.6. Continue thrombosis prophylaxis 07/24 Constitutional Vitals: Vital Signs Temp Pulse Resp BP Pulse Ox 96.8 F L 57 L 21 129/84 92 07/23/20 12:00 07/23/20 12:00 07/23/20 05:00 07/23/20 12:00 07/23/20 12:00 Period Temp Pulse Resp BP Sys/Cobb Pulse Ox Last 24 Hr 96.8 F-97.9 F 46-74 21-33 102-133/77-97 91-99 Intake and Output 07/22/20 07/23/20 07/23/20 21:59 05:59 13:59 Intake Total 550 0 350 Output Total 400 100 Balance 150 -100 350 Weight 91.172 kg Intake & Output: Intake & Output 07/22/20 07/23/20 07/23/20 21:59 05:59 13:59 Intake Total 550 0 350 Output Total 400 100 Balance 150 -100 350 Weight 91.172 kg Intake: IV 250 50 Veklury 100 mg In Sodium 250 Chloride 0.9% 250 ml @ 500 mls/ hr IV Q24H [facility] Rx#:[id number] Rocephin 2 gm In Dextrose 5% in 50 Water 50 ml @ 100 mls/hr IV Q24H [facility] Rx#:[id number] Oral 300 0 300 Output: Void Amount 400 100 Other: Meal Dinner Breakfast Percent of Meal Consumed 100% 100% Feeding Ability Independent Urine Appearance Clear Clear Clear Urine Color Bright Yellow Bright Yellow Bright Yellow Urine Odor Normal Normal Stool Size Small Moderate Small Stool Color Brown Brown Stool Consistency Loose Liquid Watery # Voids 1 1 1 # Bowel Movements 1 Exam: General: Alert, Awake, No acute Distress Eyes/N/T: EOMI, Head/Neck: neck supple, CV: RRR, No murmurs, Pulm: b/l, no wheezing Abd: soft, nontender, +BS x4 Ext: no clubbing/cyanosis/edema Neuro: Alert, no focal deficits, moves all extremities, Skin: warm/dry OBJ DATA Labs CBC & Chem 7: 07/23/20 05:12 07/23/20 05:12 Labs: Abnormal Lab Results 07/23/20 07/23/20 07/22/20 05:12 05:12 05:00 WBC RBC Hgb 10.3 L Hct 32.0 L MCV 79.6 L MCH 25.6 L RDW 16.1 H Lymph % (Auto) Lymph # (Auto) [place] # (Auto) Absolute Neutrophils D-Dimer Potassium Chloride 111 H Carbon Dioxide Creatinine 0.5 L Glucose Calcium 6.0 L 6.1 L Phosphorus 4.6 H GGT Lactate Dehydrogenase 387 H 404 H Total Protein 5.4 L 5.3 L Albumin 2.7 L 2.7 L 07/22/20 07/21/20 07/21/20 05:00 05:00 05:00 WBC 11.5 H RBC 3.88 L Hgb 10.1 L Hct 31.4 L MCV MCH RDW 16.9 H Lymph % (Auto) Lymph # (Auto) [place] # (Auto) 0.99 H Absolute Neutrophils 8.15 H D-Dimer < 0.27 L Potassium 3.2 L Chloride Carbon Dioxide 21 L Creatinine Glucose 127 H Calcium 6.1 L Phosphorus GGT 40 H Lactate Dehydrogenase 400 H Total Protein 5.6 L Albumin 2.9 L 07/21/20 05:00 WBC RBC Hgb 10.7 L Hct 33.4 L MCV MCH 25.9 L RDW 16.7 H Lymph % (Auto) 14.8 L Lymph # (Auto) 1.47 L [place] # (Auto) Absolute Neutrophils D-Dimer Potassium Chloride Carbon Dioxide Creatinine Glucose Calcium Phosphorus GGT Lactate Dehydrogenase Total Protein Albumin Meds: Medications Acetaminophen (Tylenol) 650 mg PO Q4-6HP PRN; Protocol PRN Reason: Per Pain Protocol/Fever > 101 Bisacodyl (Dulcolax) 10 mg [place] Q2-3DAYS PRN PRN Reason: Constipation Budesonide (Pulmicort) 2 puff INH BID [facility] Last Admin: 07/23/20 08:38 Dose: 2 puff Documented by: Calcitriol (Rocaltrol) 0.25 mcg PO BID [facility] Last Admin: 07/23/20 08:38 Dose: 0.25 mcg Documented by: Dexamethasone (Decadron) 6 mg PO DAILY [facility] Last Admin: 07/23/20 08:38 Dose: 6 mg Documented by: Docusate Sodium (Colace) 100 mg PO BID [facility] Last Admin: 07/23/20 07:46 Dose: Not Given Documented by: Enoxaparin Sodium (Lovenox) 40 mg SQ BID [facility] Last Admin: 07/23/20 08:39 Dose: 40 mg Documented by: Guaifenesin/Codeine Phosphate (Robitussin Ac) 10 ml PO Q4HP PRN PRN Reason: Cough Hydralazine HCl (Apresoline) 10 mg IV Q4-6HP PRN PRN Reason: Hypertension Ceftriaxone Sodium 2 gm/ (Dextrose) 50 mls @ 100 mls/hr IV Q24H [facility]; Protocol Last Infusion: 07/23/20 09:08 Dose: Infused Documented by: Potassium Chloride 40 meq/ (Dextrose) 520 mls @ 130 mls/hr IV UD PRN PRN Reason: K+ = or < 3.5 Acetaminophen (Ofirmev) 650 mg in 65 mls @ 130 mls/hr IV Q6HP PRN; Protocol PRN Reason: Per Pain Protocol/Fever > 101 Magnesium Sulfate (Magnesium Sulfate) 2 gm in 50 mls @ 50 mls/hr IV UD PRN PRN Reason: MG = or < 1.7 Calcium Gluconate 9.3 meq/ (Dextrose) 120 mls @ 120 mls/hr IV DAILYP PRN PRN Reason: CA <7.5 REMDESIVIR 100 mg/ Sodium (Chloride) 250 mls @ 500 mls/hr IV Q24H [facility] Stop: 07/23/20 13:29 Last Admin: 07/23/20 12:07 Dose: 500 mls/hr Documented by: Iron Carb/Multivit/Examination Grader/Folic Acid (Multivitamin W/Minerals) 1 tab PO DAILY [facility] Last Admin: 07/23/20 08:38 Dose: 1 tab Documented by: Levothyroxine Sodium (Synthroid) 125 mcg PO [facility] Last Admin: 07/23/20 07:43 Dose: 125 mcg Documented by: Liothyronine Sodium ([facility]omel) [facility] Last Admin: 07/23/20 07:43 Dose: 10 mcg Documented by: Lorazepam (Ativan) 0.5 mg PO Q6HP PRN PRN Reason: ANXIETY/SEDATION Melatonin (Melatonin 3mg Tablet) 3 mg PO HSP PRN PRN Reason: Insomnia Metoprolol Tartrate (Lopressor) 5 mg IV Q5M PRN PRN Reason: Heart Rate > 140 bpm Ondansetron HCl (Zofran Odt) 4 mg SL Q4-6HP PRN; Protocol PRN Reason: Nausea And Vomiting Ondansetron HCl (Zofran) 4 mg IV Q4-6HP PRN; Protocol PRN Reason: Nausea And Vomiting Polyethylene Glycol (Miralax) 17 gm PO DAILYP PRN PRN Reason: Constipation Potassium Chloride (Klor-Con) 40 meq PO DAILYP PRN PRN Reason: K+ < 3.5 Last Admin: 07/21/20 17:10 Dose: 40 meq Documented by: Senna/Docusate Sodium (Senna Plus Tablet) 1 tab PO HS [facility] Last Admin: 07/22/20 20:15 Dose: Not Given Documented by: Sodium Chloride (Saline Flush) 10 ml IV Q8 [facility] Last Admin: 07/23/20 05:59 Dose: 10 ml Documented by: Tiotropium [place] (Spiriva) 18 mcg INH DAILY [facility] Last Admin: 07/23/20 08:38 Dose: 18 mcg Documented by: ABG Interpretation ABG results: 07/19/20 20:28 ABG Methemoglobin 0 L VBG pH 7.47 VBG pCO2 26.3 VBG pO2 146.8 VBG HCO3 18.8 VBG Total CO2 19.6 VBG O2 Saturation 94.1 VBG Base Excess -4 L A/P Narrative A/P Narrative: A: *COVID 19 PNA: -worsening on interval chest imaging with bilateral infiltrates *ALI/Acute respiratory failure with hypoxia: -now on 3L NC *hypokalemia/Hypocalcemia: *Hypothyroidism: *Obesity: Plan: -Continue Remdesivir/dexamethasone -Wean O2 as tolerated, prn NIV -Continue electrolyte replacement as indicated -Nutrition support/directed therapies - -ppx: lovenox full code Time Spent With Patient Time: Total time spent is greater than 50% in coordination of care (as docume nted) at patient's floor/unit and/or counseling patient: QUALITY VTE Deep Vein Thrombosis/Pulmonary Embolism Present on Admission: No
[2020-07-23] MEDS: POTASSIUM CHLORIDE 20 MEQ PACKET PO PRN (15:24)
[2020-07-23] MEDS: SENNOSIDES/DOCUSATE SODIUM 1 TAB TABLET PO SCH (20:31)
[2020-07-24] MEDS: 0.9 % SODIUM CHLORIDE 10 ML SYRINGE IV SCH ×3 (05:41→21:01)
[2020-07-24 07:37] LABS: ALT/SGPT 15 U/L (<40); AST/SGOT 21 U/L (<32); Albumin 2.7 gm/dL (3.2-5.2); Albumin/Globulin Ratio 0.9 (1.0-2.3); Alkaline Phosphatase 44 U/L (39-117); Bilirubin,Direct < 0.2 mg/dL (<0.3); Bilirubin,Total 0.3 mg/dL (0.1-1.0); Blood Urea Nitrogen 12 mg/dL (6-20); Calcium 7.1 mg/dL (8.6-10.4); Carbon Dioxide 25 mmol/L (22-30); Chloride 104 mmol/L (96-108); Globulin 2.9 gm/dL (2.2-3.7); Glomerular Filtration Rate 111; Glucose 108 mg/dL (70-105); Lactate Dehydrogenase 370 U/L (135-225); Phosphorous 4.7 mg/dL (2.5-4.5); Triglycerides 31 mg/dL (<150); Uric Acid 4.3 mg/dL (2.5-8.0)
--- NOTE | 2020-07-24 07:47 | Internal Med Progress Note ---
SUBJECTIVE Subjective Patient information: Note initiated : 07/24/20 at 7:43 am Service Date, if different from initiated Date: [] Patient: Katey Maria a 45 y/o F admitted on 07/19/20 for SOB, covid positive. 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 Patient is and lives with her who was recently diagnosed with Covid. Initial work-up in the ER was consistent with Covid pneumonia/white count 12,000. Patient was started on remdesivir/steroid. Hospital service was consulted. At the time of evaluation patient is on 3 L oxygen. She is anxious but able to talk in full sentences without significant respiratory distress. She denies headache, photophobia, nausea, diarrhea, dysuria, chest pain or productive cough. She does endorse to fatigue malaise weakness and fever. 07/20-patient currently on 5 L oxygen with worsening respiratory status since previous night. Currently on remdesivir/dexamethasone. Feels anxious. No telemetry events. Continue COVID-19 precautions. White count 8.5. Stable hemodynamics. Potassium up from 3.1-3.7. Calcium 5.7 on replacement. Creatinine 1.8. Later in the evening patient became profoundly short of breath and requiring 10 days oxygen. Patient transition to noninvasive ventilation. Clear worsening of Covid pneumonia noted. Now on 55% FiO2 on noninvasive ventilation. Continue remdesivir/dexamethasone. Consider transfer to tertiary center if clinical deterioration noted. Patient critically ill with [place] 2 score 15. 07/21-patient overnight on noninvasive mechanical ventilation. Currently on 40% FiO2. Feels a lot better. Less things anxious. White count 9.9. D-dimer low, potassium 3.2 on replacement, calcium 6.1 on replacement, ferritin 359, CRP 13.5. Continue twice daily thrombosis prophylaxis./Antibiotics/remdesivir dexamethasone 07/22- Pt on 40% FiO2 non invasive ventilation, on 9L O2 when off NIV. WBC 11.5, afebrile, Feel better than previous day, Continue remdesivir 07/23-interval worsening chest imaging with bilateral pneumonia. Remains on 40% FiO2/8 L oxygen nasal cannula while off noninvasive ventilation. Continue remdesivir/dexamethasone. Stable hemodynamics. White count 10.6. Continue thrombosis prophylaxis 07/24 Patient feeling little better every day. Has occasional cough. Some shortness of breath is improving. On 5 L nasal cannula. Patient was told in the past she had obstructive sleep apnea and was likely getting a CPAP machine but never followed through. Review of Systems: denies headache/fever/chills/nausea/vomiting/chest or abdominal pain/diarrhea. Otherwise see above. Constitutional Vitals: Vital Signs Temp Pulse Resp BP Pulse Ox 96.9 F L 88 25 H 131/82 97 07/24/20 03:07 07/24/20 07:02 07/24/20 07:02 07/24/20 07:00 07/24/20 07:02 Period Temp Pulse Resp BP Sys/Cobb Pulse Ox Last 24 Hr 96.8 F-97.8 F 43-88 18-30 110-151/77-109 91-99 Intake and Output 07/23/20 07/24/20 07/24/20 21:59 05:59 13:59 Intake Total 370 500 Output Total 400 350 Balance -30 150 Weight 89.947 kg Intake & Output: Intake & Output 07/23/20 07/24/20 07/24/20 21:59 05:59 13:59 Intake Total 370 500 Output Total 400 350 Balance -30 150 Weight 89.947 kg Intake: IV 120 Calcium Gluconate 9.3 Meq In 120 Dextrose 5% in Water 100 ml @ 120 mls/hr IV DAILYP PRN Rx#: [id number] Oral 250 500 Output: Void Amount 400 350 Other: Meal Dinner Percent of Meal Consumed 100% Feeding Ability Independent Urine Appearance Clear Clear Urine Color Pale Bright Yellow Urine Odor Normal # Voids 1 Exam: General: Alert, Awake, No acute Distress Eyes/N/T: EOMI, Head/Neck: neck supple, CV: RRR, No murmurs, Pulm: fine ralesb/l, no wheezing Abd: soft, nontender, +BS x4 Ext: no clubbing/cyanosis/edema Neuro: Alert, no focal deficits, moves all extremities, Skin: warm/dry OBJ DATA Labs CBC & Chem 7: 07/23/20 05:12 07/24/20 05:15 Labs: Abnormal Lab Results 07/24/20 07/24/20 07/23/20 05:15 05:15 05:12 WBC RBC Hgb Hct MCV MCH RDW [place] # (Auto) Absolute Neutrophils Chloride Creatinine 0.5 L Glucose 108 H Calcium 7.1 L 6.0 L Phosphorus 4.7 H 4.6 H Lactate Dehydrogenase 370 H 387 H C-Reactive Protein 3.00 H Total Protein 5.6 L 5.4 L Albumin 2.7 L 2.7 L Albumin/Globulin Ratio 0.9 L 07/23/20 07/22/20 07/22/20 05:12 05:00 05:00 WBC 11.5 H RBC 3.88 L Hgb 10.3 L 10.1 L Hct 32.0 L 31.4 L MCV 79.6 L MCH 25.6 L RDW 16.1 H 16.9 H [place] # (Auto) 0.99 H Absolute Neutrophils 8.15 H Chloride 111 H Creatinine Glucose Calcium 6.1 L Phosphorus Lactate Dehydrogenase 404 H C-Reactive Protein Total Protein 5.3 L Albumin 2.7 L Albumin/Globulin Ratio Meds: Medications Acetaminophen (Tylenol) 650 mg PO Q4-6HP PRN; Protocol PRN Reason: Per Pain Protocol/Fever > 101 Bisacodyl (Dulcolax) [address] Q2-3DAYS PRN PRN Reason: Constipation Budesonide (Pulmicort) 2 puff INH BID [facility] Last Admin: 07/23/20 20:31 Dose: 2 puff Documented by: Calcitriol (Rocaltrol) 0.25 mcg PO BID [facility] Last Admin: 07/23/20 20:30 Dose: 0.25 mcg Documented by: Dexamethasone (Decadron) 6 mg PO DAILY [facility] Last Admin: 07/23/20 08:38 Dose: 6 mg Documented by: Docusate Sodium (Colace) 100 mg PO BID [facility] Last Admin: 07/23/20 20:31 Dose: Not Given Documented by: Enoxaparin Sodium (Lovenox) 40 mg SQ BID [facility] Last Admin: 07/23/20 20:30 Dose: 40 mg Documented by: Guaifenesin/Codeine Phosphate (Robitussin Ac) 10 ml PO Q4HP PRN PRN Reason: Cough Hydralazine HCl (Apresoline) 10 mg IV Q4-6HP PRN PRN Reason: Hypertension Ceftriaxone Sodium 2 gm/ (Dextrose) 50 mls @ 100 mls/hr IV Q24H [facility]; Protocol Last Infusion: 07/23/20 09:08 Dose: Infused Documented by: Potassium Chloride 40 meq/ (Dextrose) 520 mls @ 130 mls/hr IV UD PRN PRN Reason: K+ = or < 3.5 Acetaminophen (Ofirmev) 650 mg in 65 mls @ 130 mls/hr IV Q6HP PRN; Protocol PRN Reason: Per Pain Protocol/Fever > 101 Magnesium Sulfate (Magnesium Sulfate) 2 gm in 50 mls @ 50 mls/hr IV UD PRN PRN Reason: MG = or < 1.7 Calcium Gluconate 9.3 meq/ (Dextrose) 120 mls @ 120 mls/hr IV DAILYP PRN PRN Reason: CA <7.5 Last Infusion: 07/23/20 16:25 Dose: Infused Documented by: Iron Carb/Multivit/[employer] Set Up Mechanic/Folic Acid (Multivitamin W/Minerals) 1 tab PO DAILY [facility] Last Admin: 07/23/20 08:38 Dose: 1 tab Documented by: Levothyroxine Sodium (Synthroid) 125 mcg PO [facility] Last Admin: 07/23/20 07:43 Dose: 125 mcg Documented by: Liothyronine Sodium (Cytomel) 10 mcg PO [facility] Last Admin: 07/23/20 07:43 Dose: 10 mcg Documented by: Lorazepam (Ativan) 0.5 mg PO Q6HP PRN PRN Reason: ANXIETY/SEDATION Melatonin (Melatonin 3mg Tablet) 3 mg PO HSP PRN PRN Reason: Insomnia Metoprolol Tartrate (Lopressor) 5 mg IV Q5M PRN PRN Reason: Heart Rate > 140 bpm Ondansetron HCl (Zofran Odt) 4 mg SL Q4-6HP PRN; Protocol PRN Reason: Nausea And Vomiting Ondansetron HCl (Zofran) 4 mg IV Q4-6HP PRN; Protocol PRN Reason: Nausea And Vomiting Polyethylene Glycol (Miralax) 17 gm PO DAILYP PRN PRN Reason: Constipation Potassium Chloride (Klor-Con) 40 meq PO DAILYP PRN PRN Reason: K+ < 3.5 Last Admin: 07/23/20 15:24 Dose: 40 meq Documented by: Senna/Docusate Sodium (Senna Plus Tablet) 1 tab PO [facility] Last Admin: 07/23/20 20:31 Dose: Not Given Documented by: Sodium Chloride (Saline Flush) 10 ml IV Q8 [facility] Last Admin: 07/24/20 05:41 Dose: 10 ml Documented by: Tiotropium [place] (Spiriva) 18 mcg INH DAILY [facility] Last Admin: 07/23/20 08:38 Dose: 18 mcg Documented by: ABG Interpretation ABG results: 07/19/20 20:28 ABG Methemoglobin 0 L VBG pH 7.47 VBG pCO2 26.3 VBG pO2 146.8 VBG HCO3 18.8 VBG Total CO2 19.6 VBG O2 Saturation 94.1 VBG Base Excess -4 L A/P Narrative A/P Narrative: A: *COVID 19 PNA: -Inflammatory markers mproving *ALI/Acute respiratory failure with hypoxia: -now on 5L NC *hypokalemia/Hypocalcemia: improved *Hypothyroidism: *Obesity: *JACQUI: never followed up for CPAP eval Plan: -Continue Remdesivir/dexamethasone -self-prone positioning -Wean O2 as tolerated, prn NIV -Continue electrolyte replacement as indicated -Nutrition support/directed therapies -f/u with pulmonology for JACQUI -ppx: lovenox full code Time Spent With Patient Time: Total time spent is greater than 50% in coordination of care (as documented) at patient's floor/unit and/or counseling patient: QUALITY VTE Deep Vein Thrombosis/Pulmonary Embolism Present on Admission: No
[2020-07-24] MEDS: LIOTHYRONINE 5 MCG TABLET PO SCH (08:05)
[2020-07-24] MEDS: LEVOTHYROXINE 125 MCG TABLET PO SCH (08:05)
[2020-07-24 08:21] LABS: Ferritin 184.6 ng/mL (13.0-150.0)
[2020-07-24] MEDS: DOCUSATE SODIUM 100 MG CAPSULE PO SCH ×2 (09:10→21:01)
[2020-07-24] MEDS: ENOXAPARIN 40 MG/0.4 ML SYRINGE SQ SCH ×2 (09:10→21:01)
[2020-07-24] MEDS: ZINC SULFATE 50 MG CAPSULE PO SCH (09:10)
[2020-07-24] MEDS: CALCITRIOL 0.25 MCG CAPSULE PO SCH ×2 (09:10→21:01)
[2020-07-24] MEDS: DEXAMETHASONE 4 MG TABLET PO SCH (09:10)
[2020-07-24] MEDS: MULTIVIT,THER IRON,CA,FA & MIN 1 TABLET PO SCH (09:10)
[2020-07-24] MEDS: cefTRIAXone 2 GM in DEXTROSE 5% IN WATER 50 ML IV SCH (09:10)
[2020-07-24] MEDS: TIOTROPIUM BROMIDE 18 MCG INHALANT INH SCH (09:11)
[2020-07-24] MEDS: BUDESONIDE 1 PUFF INHALER INH SCH ×2 (09:11→21:01)
[2020-07-24] MEDS: SENNOSIDES/DOCUSATE SODIUM 1 TAB TABLET PO SCH (21:01)
[2020-07-25] MEDS: 0.9 % SODIUM CHLORIDE 10 ML SYRINGE IV SCH ×3 (05:13→20:42)
[2020-07-25] MEDS: LIOTHYRONINE 5 MCG TABLET PO SCH (06:56)
[2020-07-25] MEDS: LEVOTHYROXINE 125 MCG TABLET PO SCH (06:56)
[2020-07-25 07:17] LABS: ALT/SGPT 18 U/L (<40); AST/SGOT 21 U/L (<32); Albumin 2.7 gm/dL (3.2-5.2); Albumin/Globulin Ratio 0.9 (1.0-2.3); Alkaline Phosphatase 49 U/L (39-117); Bilirubin,Direct < 0.2 mg/dL (<0.3); Bilirubin,Total 0.2 mg/dL (0.1-1.0); Blood Urea Nitrogen 13 mg/dL (6-20); Carbon Dioxide 24 mmol/L (22-30); Chloride 102 mmol/L (96-108); Globulin 2.9 gm/dL (2.2-3.7); Glomerular Filtration Rate 111; Glucose 113 mg/dL (70-105); Lactate Dehydrogenase 455 U/L (135-225); Phosphorous 4.6 mg/dL (2.5-4.5); Triglycerides 36 mg/dL (<150); Uric Acid 4.5 mg/dL (2.5-8.0)
[2020-07-25] MEDS ORDERED: CALCIUM GLUCONATE 4.65 MEQ/10 ML VIAL IV ONE (07:18)
--- NOTE | 2020-07-25 07:19 | Internal Med Progress Note ---
SUBJECTIVE Subjective Patient information: Note initiated : 07/25/20 at 7:16 am Service Date, if different from initiated Date: [] Patient: Katey Maria a 45 y/o F admitted on 07/19/20 for SOB, covid positive. 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 Patient is and lives with her who was recently diagnosed with Covid. Initial work-up in the ER was consistent with Covid pneumonia/white count 12,000. Patient was started on remdesivir/steroid. Hospital service was consulted. At the time of evaluation patient is on 3 L oxygen. She is anxious but able to talk in full sentences without significant respiratory distress. She denies headache, photophobia, nausea, diarrhea, dysuria, chest pain or productive cough. She does endorse to fatigue malaise weakness and fever. 07/20-patient currently on 5 L oxygen with worsening respiratory status since previous night. Currently on remdesivir/dexamethasone. Feels anxious. No telemetry events. Continue COVID-19 precautions. White count 8.5. Stable hemodynamics. Potassium up from 3.1-3.7. Calcium 5.7 on replacement. Creatinine 1.8. Later in the evening patient became profoundly short of breath and requiring 10 days oxygen. Patient transition to noninvasive ventilation. Clear worsening of Covid pneumonia noted. Now on 55% FiO2 on noninvasive ventilation. Continue remdesivir/dexamethasone. Consider transfer to tertiary center if clinical deterioration noted. Patient critically ill with [place] 2 score 15. 07/21-patient overnight on noninvasive mechanical ventilation. Currently on 40% FiO2. Feels a lot better. Less things anxious. White count 9.9. D-dimer low, potassium 3.2 on replacement, calcium 6.1 on replacement, ferritin 359, CRP 13.5. Continue twice daily thrombosis prophylaxis./Antibiotics/remdesivir dexamethasone 07/22- Pt on 40% FiO2 non invasive ventilation, on 9L O2 when off NIV. WBC 11.5, afebrile, Feel better than previous day, Continue remdesivir 07/23-interval worsening chest imaging with bilateral pneumonia. Remains on 40% FiO2/8 L oxygen nasal cannula while off noninvasive ventilation. Continue remdesivir/dexamethasone. Stable hemodynamics. White count 10.6. Continue thrombosis prophylaxis 07/24 Patient feeling little better every day. Has occasional cough. Some shortness of breath is improving. On 5 L nasal cannula. Patient was told in the past she had obstructive sleep apnea and was likely getting a CPAP machine but never followed through. 07/25 Feeling better this morning. Minimal cough. Breathing better. Lowered to 4 L nasal cannula as of a few minutes ago. Review of Systems: denies headache/fever/chills/nausea/vomiting/chest or abdominal pain/diarrhea. Otherwise see above. Constitutional Vitals: Vital Signs Temp Pulse Resp BP Pulse Ox 97.8 F 49 L 18 131/85 99 07/25/20 03:16 07/25/20 05:00 07/25/20 05:00 07/25/20 06:00 07/25/20 06:00 Period Temp Pulse Resp BP Sys/Cobb Pulse Ox Last 24 Hr 96.8 F-98.1 F 49-84 - 98-163/68-105 90-100 Intake and Output 07/24/20 07/25/20 07/25/20 21:59 05:59 13:59 Intake Total 750 100 Output Total 250 Balance 750 -150 Weight 92.805 kg Intake & Output: Intake & Output 07/24/20 07/25/20 07/25/20 21:59 05:59 13:59 Intake Total 750 100 Output Total 250 Balance 750 -150 Weight 92.805 kg Intake: Oral 750 100 Output: Void Amount 250 Other: Urine Appearance Clear Urine Color Bright Yellow Urine Odor Normal # Voids 1 Exam: General: Alert, Awake, No acute Distress Eyes/N/T: EOMI, Head/Neck: neck supple, CV: RRR, No murmurs, Pulm: fine rales b/l improving, no wheezing Abd: soft, nontender, +BS x4 Ext: no clubbing/cyanosis/edema Neuro: Alert, no focal deficits, moves all extremities, Skin: warm/dry OBJ DATA Labs CBC & Chem 7: 07/23/20 05:12 07/25/20 05:04 Labs: Abnormal Lab Results 07/24/20 07/24/20 07/24/20 05:15 05:15 05:15 WBC RBC Hgb Hct MCV MCH RDW [place] # (Auto) Absolute Neutrophils Creatinine Glucose 108 H Calcium 7.1 L Phosphorus 4.7 H Ferritin 184.6 H Lactate Dehydrogenase 370 H C-Reactive Protein 3.00 H Total Protein 5.6 L Albumin 2.7 L Albumin/Globulin Ratio 0.9 L 07/23/20 07/23/20 07/22/20 05:12 05:12 05:00 WBC 11.5 H RBC 3.88 L Hgb 10.3 L 10.1 L Hct 32.0 L 31.4 L MCV 79.6 L MCH 25.6 L RDW 16.1 H 16.9 H [place] # (Auto) 0.99 H Absolute Neutrophils 8.15 H Creatinine 0.5 L Glucose Calcium 6.0 L Phosphorus 4.6 H Ferritin Lactate Dehydrogenase 387 H C-Reactive Protein Total Protein 5.4 L Albumin 2.7 L Albumin/Globulin Ratio Meds: Medications Acetaminophen (Tylenol) 650 mg PO Q4-6HP PRN; Protocol PRN Reason: Per Pain Protocol/Fever > 101 Bisacodyl (Dulcolax) 10 mg [place] Q2-3DAYS PRN PRN Reason: Constipation Budesonide (Pulmicort) 2 puff INH BID [facility] Last Admin: 07/24/20 21:01 Dose: 2 puff Documented by: Calcitriol (Rocaltrol) 0.25 mcg PO BID [facility] Last Admin: 07/24/20 21:01 Dose: 0.25 mcg Documented by: Dexamethasone (Decadron) 6 mg PO DAILY [facility] Last Admin: 07/24/20 09:10 Dose: 6 mg Documented by: Docusate Sodium (Colace) 100 mg PO BID [facility] Last Admin: 07/24/20 21:01 Dose: Not Given Documented by: Enoxaparin Sodium (Lovenox) 40 mg SQ BID [facility] Last Admin: 07/24/20 21:01 Dose: 40 mg Documented by: Guaifenesin/Codeine Phosphate (Robitussin Ac) 10 ml PO Q4HP PRN PRN Reason: Cough Hydralazine HCl (Apresoline) 10 mg IV Q4-6HP PRN PRN Reason: Hypertension Ceftriaxone Sodium 2 gm/ (Dextrose) 50 mls @ 100 mls/hr IV Q24H [facility]; Protocol Last Infusion: 07/24/20 09:45 Dose: Infused Documented by: Potassium Chloride 40 meq/ (Dextrose) 520 mls @ 130 mls/hr IV UD PRN PRN Reason: K+ = or < 3.5 Acetaminophen (Ofirmev) 650 mg in 65 mls @ 130 mls/hr IV Q6HP PRN; Protocol PRN Reason: Per Pain Protocol/Fever > 101 Magnesium Sulfate (Magnesium Sulfate) 2 gm in 50 mls @ 50 mls/hr IV UD PRN PRN Reason: MG = or < 1.7 Iron Carb/Multivit/[place]/Folic Acid (Multivitamin W/Minerals) 1 tab PO DAILY [facility] Last Admin: 07/24/20 09:10 Dose: 1 tab Documented by: Levothyroxine Sodium (Synthroid) 125 mcg PO QAMAC [facility] Last Admin: 07/25/20 06:56 Dose: 125 mcg Documented by: Liothyronine Sodium (Cytomel) 10 mcg PO QAMAC [facility] Last Admin: 07/25/20 06:56 Dose: 10 mcg Documented by: Lorazepam (Ativan) 0.5 mg PO Q6HP PRN PRN Reason: ANXIETY/SEDATION Melatonin (Melatonin 3mg Tablet) 3 mg PO HSP PRN PRN Reason: Insomnia Metoprolol Tartrate (Lopressor) 5 mg IV Q5M PRN PRN Reason: Heart Rate > 140 bpm Ondansetron HCl (Zofran Odt) 4 mg SL Q4-6HP PRN; Protocol PRN Reason: Nausea And Vomiting Ondansetron HCl (Zofran) 4 mg IV Q4-6HP PRN; Protocol PRN Reason: Nausea And Vomiting Polyethylene Glycol (Miralax) 17 gm PO DAILYP PRN PRN Reason: Constipation Potassium Chloride (Klor-Con) 40 meq PO DAILYP PRN PRN Reason: K+ < 3.5 Last Admin: 07/23/20 15:24 Dose: 40 meq Documented by: Senna/Docusate Sodium (Senna Plus Tablet) 1 tab PO HS [facility] Last Admin: 07/24/20 21:01 Dose: Not Given Documented by: Sodium Chloride (Saline Flush) 10 ml IV Q8 [facility] Last Admin: 07/25/20 05:13 Dose: 10 ml Documented by: Tiotropium [place] (Spiriva) 18 mcg INH DAILY [facility] Last Admin: 07/24/20 09:11 Dose: 18 mcg Documented by: Zinc Sulfate (Zinc) 50 mg PO DAILY [facility] Last Admin: 07/24/20 09:10 Dose: 50 mg Documented by: ABG Interpretation ABG results: 07/19/20 20:28 ABG Methemoglobin 0 L VBG pH 7.47 VBG pCO2 26.3 VBG pO2 146.8 VBG HCO3 18.8 VBG Total CO2 19.6 VBG O2 Saturation 94.1 VBG Base Excess -4 L A/P Narrative A/P Narrative: A: *COVID 19 PNA: -Inflammatory markers improving *ALI/Acute respiratory failure with hypoxia: -now on 4L NC, cpap at night for satya *hypokalemia/Hypocalcemia: improved *Hypothyroidism: *Obesity: *SATYA: never followed up for CPAP eval Plan: -Continue Remdesivir/dexamethasone -self-prone positioning -Wean O2 as tolerated, prn NIV -Continue electrolyte replacement as indicated -Nutrition support/directed therapies -f/u with pulmonology for SATYA -ppx: lovenox full code Time Spent With Patient Time: Total time spent is greater than 50% in coordination of care (as documented) at patient's floor/unit and/or counseling patient: QUALITY VTE Deep Vein Thrombosis/Pulmonary Embolism Present on Admission: No
[2020-07-25] MEDS: DOCUSATE SODIUM 100 MG CAPSULE PO SCH ×2 (08:01→20:28)
[2020-07-25] MEDS: cefTRIAXone 2 GM in DEXTROSE 5% IN WATER 50 ML IV SCH (08:02)
[2020-07-25] MEDS: MULTIVIT,THER IRON,CA,FA & MIN 1 TABLET PO SCH (08:02)
[2020-07-25] MEDS: ENOXAPARIN 40 MG/0.4 ML SYRINGE SQ SCH ×2 (08:02→20:42)
[2020-07-25] MEDS: DEXAMETHASONE 4 MG TABLET PO SCH (08:02)
[2020-07-25] MEDS: CALCITRIOL 0.25 MCG CAPSULE PO SCH ×2 (08:02→20:41)
[2020-07-25] MEDS: ZINC SULFATE 50 MG CAPSULE PO SCH (08:02)
[2020-07-25] MEDS: BUDESONIDE 1 PUFF INHALER INH SCH ×2 (08:03→20:41)
[2020-07-25] MEDS: TIOTROPIUM BROMIDE 18 MCG INHALANT INH SCH (08:03)
[2020-07-25] MEDS: SENNOSIDES/DOCUSATE SODIUM 1 TAB TABLET PO SCH (20:28)
[2020-07-26] MEDS: 0.9 % SODIUM CHLORIDE 10 ML SYRINGE IV SCH ×3 (05:18→21:11)
--- NOTE | 2020-07-26 07:26 | Internal Med Progress Note ---
SUBJECTIVE Subjective Patient information: Note initiated : 07/26/20 at 7:24 am Service Date, if different from initiated Date: [] Patient: Katey Maria a 45 y/o F admitted on 07/19/20 for SOB, covid positive. 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 Patient is and lives with her who was recently diagnosed with Covid. Initial work-up in the ER was consistent with Covid pneumonia/white count 12,000. Patient was started on remdesivir/steroid. Hospital service was consulted. At the time of evaluation patient is on 3 L oxygen. She is anxious but able to talk in full sentences without significant respiratory distress. She denies headache, photophobia, nausea, diarrhea, dysuria, chest pain or productive cough. She does endorse to fatigue malaise weakness and fever. 07/20-patient currently on 5 L oxygen with worsening respiratory status since previous night. Currently on remdesivir/dexamethasone. Feels anxious. No telemetry events. Continue COVID-19 precautions. White count 8.5. Stable hemodynamics. Potassium up from 3.1-3.7. Calcium 5.7 on replacement. Creatinine 1.8. Later in the evening patient became profoundly short of breath and requiring 10 days oxygen. Patient transition to noninvasive ventilation. Clear worsening of Covid pneumonia noted. Now on 55% FiO2 on noninvasive ventilation. Continue remdesivir/dexamethasone. Consider transfer to tertiary center if clinical deterioration noted. Patient critically ill with [place] 2 score 15. 07/21-patient overnight on noninvasive mechanical ventilation. Currently on 40% FiO2. Feels a lot better. Less things anxious. White count 9.9. D-dimer low, potassium 3.2 on replacement, calcium 6.1 on replacement, ferritin 359, CRP 13.5. Continue twice daily thrombosis prophylaxis./Antibiotics/remdesivir dexamethasone 07/22- Pt on 40% FiO2 non invasive ventilation, on 9L O2 when off NIV. WBC 11.5, afebrile, Feel better than previous day, Continue remdesivir 07/23-interval worsening chest imaging with bilateral pneumonia. Remains on 40% FiO2/8 L oxygen nasal cannula while off noninvasive ventilation. Continue remdesivir/dexamethasone. Stable hemodynamics. White count 10.6. Continue thrombosis prophylaxis 07/24 Patient feeling little better every day. Has occasional cough. Some shortness of breath is improving. On 5 L nasal cannula. Patient was told in the past she had obstructive sleep apnea and was likely getting a CPAP machine but never followed through. 07/25 Feeling better this morning. Minimal cough. Breathing better. Lowered to 4 L nasal cannula as of a few minutes ago. 07/26 Continues gradual improvement. On 2 L nasal cannula this morning. No overnight event or new complaints. Review of Systems: denies headache/fever/chills/nausea/vomiting/chest or abdominal pain/diarrhea. Otherwise see above. Constitutional Vitals: Vital Signs Temp Pulse Resp BP Pulse Ox 96.6 F L 61 18 139/95 94 07/26/20 04:02 07/26/20 05:00 07/26/20 06:01 07/26/20 06:01 07/26/20 06:01 Period Temp Pulse Resp BP Sys/Cobb Pulse Ox Last 24 Hr 96.6 F-98.1 F 50-90 15-24 108-158/75-117 91-98 Intake and Output 07/25/20 07/26/20 07/26/20 21:59 05:59 13:59 Intake Total 570 100 Output Total 200 Balance 370 100 Weight 88.088 kg Intake & Output: Intake & Output 07/25/20 07/26/20 07/26/20 21:59 05:59 13:59 Intake Total 570 100 Output Total 200 Balance 370 100 Weight 88.088 kg Intake: Oral 570 100 Output: Void Amount 200 Other: Meal Dinner Percent of Meal Consumed 100% Urine Appearance Clear Clear Urine Color Bright Yellow Bright Yellow Urine Odor Normal Normal Stool Size Moderate Stool Color Brown Stool Consistency Liquid Loose # Voids 2 1 # Bowel Movements 1 Exam: General: Alert, Awake, No acute Distress Eyes/N/T: EOMI, Head/Neck: neck supple, CV: RRR, No murmurs, Pulm: fine rales b/l improved, no wheezing Abd: soft, nontender, +BS x4 Ext: no clubbing/cyanosis/edema Neuro: Alert, no focal deficits, moves all extremities, Skin: warm/dry OBJ DATA Labs CBC & Chem 7: 07/23/20 05:12 07/26/20 04:58 Labs: Abnormal Lab Results 07/25/20 07/24/20 07/24/20 05:04 05:15 05:15 Hgb Hct MCV MCH RDW Creatinine Glucose 113 H Calcium 7.0 L Phosphorus 4.6 H Ferritin 184.6 H GGT 40 H Lactate Dehydrogenase 455 H C-Reactive Protein 3.00 H Total Protein 5.6 L Albumin 2.7 L Albumin/Globulin Ratio 0.9 L 07/24/20 07/23/20 07/23/20 05:15 05:12 05:12 Hgb 10.3 L Hct 32.0 L MCV 79.6 L MCH 25.6 L RDW 16.1 H Creatinine 0.5 L Glucose 108 H Calcium 7.1 L 6.0 L Phosphorus 4.7 H 4.6 H Ferritin GGT Lactate Dehydrogenase 370 H 387 H C-Reactive Protein Total Protein 5.6 L 5.4 L Albumin 2.7 L 2.7 L Albumin/Globulin Ratio 0.9 L Meds: Medications Acetaminophen (Tylenol) 650 mg PO Q4-6HP PRN; Protocol PRN Reason: Per Pain Protocol/Fever > 101 Bisacodyl (Dulcolax) 10 mg AR Q2-3DAYS PRN PRN Reason: Constipation Budesonide (Pulmicort) 2 puff INH BID [facility] Last Admin: 07/25/20 20:41 Dose: 2 puff Documented by: Calcitriol (Rocaltrol) 0.25 mcg PO BID [facility] Last Admin: 07/25/20 20:41 Dose: 0.25 mcg Documented by: Dexamethasone (Decadron) 6 mg PO DAILY [facility] Last Admin: 07/25/20 08:02 Dose: 6 mg Documented by: Docusate Sodium (Colace) 100 mg PO BID [facility] Last Admin: 07/25/20 20:28 Dose: Not Given Documented by: Enoxaparin Sodium (Lovenox) 40 mg SQ BID [facility] Last Admin: 07/25/20 20:42 Dose: 40 mg Documented by: Guaifenesin/Codeine Phosphate (Robitussin Ac) 10 ml PO Q4HP PRN PRN Reason: Cough Hydralazine HCl (Apresoline) 10 mg IV Q4-6HP PRN PRN Reason: Hypertension Ceftriaxone Sodium 2 gm/ (Dextrose) 50 mls @ 100 mls/hr IV Q24H [facility]; Protocol Last Infusion: 07/25/20 08:32 Dose: Infused Documented by: Potassium Chloride 40 meq/ (Dextrose) 520 mls @ 130 mls/hr IV UD PRN PRN Reason: K+ = or < 3.5 Acetaminophen (Ofirmev) 650 mg in 65 mls @ 130 mls/hr IV Q6HP PRN; Protocol PRN Reason: Per Pain Protocol/Fever > 101 Magnesium Sulfate (Magnesium Sulfate) 2 gm in 50 mls @ 50 mls/hr IV UD PRN PRN Reason: MG = or < 1.7 Iron Carb/Multivit/[place]/Folic Acid (Multivitamin W/Minerals) 1 tab PO DAILY [facility] Last Admin: 07/25/20 08:02 Dose: 1 tab Documented by: [facility]) [facility] Admin: 07/25/20 06:56 Dose: 125 mcg Documented by: Liothyronine S[facility] ([facility]omel) [facility] Last Admin: 07/25/20 06:56 Dose: 10 mcg Documented by: Lorazepam (Ativan) 0.5 mg PO Q6HP PRN PRN Reason: ANXIETY/SEDATION Melatonin (Melatonin 3mg Tablet) 3 mg PO HSP PRN PRN Reason: Insomnia Metoprolol Tartrate (Lopressor) 5 mg IV Q5M PRN PRN Reason: Heart Rate > 140 bpm Ondansetron HCl (Zofran Odt) 4 mg SL Q4-6HP PRN; Protocol PRN Reason: Nausea And Vomiting Ondansetron HCl (Zofran) 4 mg IV Q4-6HP PRN; Protocol PRN Reason: Nausea And Vomiting Polyethylene Glycol (Miralax) 17 gm PO DAILYP PRN PRN Reason: Constipation Potassium Chloride (Klor-Con) 40 meq PO DAILYP PRN PRN Reason: K+ < 3.5 Last Admin: 07/23/20 15:24 Dose: 40 meq Documented by: Senna/Docusate Sodium (Senna Plus Tablet) 1 tab PO HS [facility] Last Admin: 07/25/20 20:28 Dose: Not Given Documented by: Sodium Chloride (Saline Flush) 10 ml IV Q8 [facility] Last Admin: 07/26/20 05:18 Dose: 10 ml Documented by: Tiotropium [place] (Spiriva) 18 mcg INH DAILY [facility] Last Admin: 07/25/20 08:03 Dose: 18 mcg Documented by: Zinc Sulfate (Zinc) 50 mg PO DAILY [facility] Last Admin: 07/25/20 08:02 Dose: 50 mg Documented by: ABG Interpretation ABG results: 07/19/20 20:28 ABG Methemoglobin 0 L VBG pH 7.47 VBG pCO2 26.3 VBG pO2 146.8 VBG HCO3 18.8 VBG Total CO2 19.6 VBG O2 Saturation 94.1 VBG Base Excess -4 L A/P Narrative A/P Narrative: A: *COVID 19 PNA: -Inflammatory markers improving *ALI/Acute respiratory failure with hypoxia: -now on 2L NC, cpap at night for satya *hypokalemia/Hypocalcemia: improved *Hypothyroidism: *Obesity: *SATYA: never followed up for CPAP eval Plan: -Continue Remdesivir/dexamethasone -self-prone positioning -Wean O2 as tolerated, prn NIV -Continue electrolyte replacement as indicated -Nutrition support/directed therapies -f/u with pulmonology for SATYA -ppx: lovenox full code Time Spent With Patient Time: Total time spent is greater than 50% in coordination of care (as documented) at patient's floor/unit and/or counseling patient: QUALITY VTE Deep Vein Thrombosis/Pulmonary Embolism Present on Admission: No
[2020-07-26 07:31] LABS: Blood Urea Nitrogen 16 mg/dL (6-20); Calcium 7.6 mg/dL (8.6-10.4); Carbon Dioxide 25 mmol/L (22-30); Chloride 101 mmol/L (96-108); Glomerular Filtration Rate 111; Glucose 92 mg/dL (70-105)
[2020-07-26] MEDS: LEVOTHYROXINE 125 MCG TABLET PO SCH (07:34)
[2020-07-26] MEDS: LIOTHYRONINE 5 MCG TABLET PO SCH (07:34)
[2020-07-26] MEDS: ZINC SULFATE 50 MG CAPSULE PO SCH (08:20)
[2020-07-26] MEDS: DEXAMETHASONE 4 MG TABLET PO SCH (08:20)
[2020-07-26] MEDS: MULTIVIT,THER IRON,CA,FA & MIN 1 TABLET PO SCH (08:20)
[2020-07-26] MEDS: ENOXAPARIN 40 MG/0.4 ML SYRINGE SQ SCH ×2 (08:20→21:10)
[2020-07-26] MEDS: CALCITRIOL 0.25 MCG CAPSULE PO SCH ×2 (08:20→21:10)
[2020-07-26] MEDS: cefTRIAXone 2 GM in DEXTROSE 5% IN WATER 50 ML IV SCH (08:21)
[2020-07-26] MEDS: BUDESONIDE 1 PUFF INHALER INH SCH ×2 (08:21→21:11)
[2020-07-26] MEDS: TIOTROPIUM BROMIDE 18 MCG INHALANT INH SCH (08:21)
[2020-07-26] MEDS: DOCUSATE SODIUM 100 MG CAPSULE PO SCH ×2 (08:22→21:10)
--- NOTE | 2020-07-26 09:09 | Discharge Summary ---
Discharge Provider Provider Patient information: Note initiated : 07/26/20 at 9:08 am Service Date, if different from initiated Date: [] Patient: Katey Maria a 45 y/o F admitted on 07/19/20 for SOB, covid positive. Chief Complaint: [] Date of admission: 07/19/20 23:34 Discharge date: 07/27/20 Primary care physician: Vira Dumont DO Consults: 07/19/20 Consult to Physician [CONS] Stat Comment: Consulting Provider: Júnior Wells Reason For Exam: Physician to Consult Discharge Meds Discharge Medications Home Medications albuterol sulfate 90 mcg/actuation aerosol inhaler 2 puff INHALATION Q6H PRN #18 g 09/12/17 [Rx Confirmed 07/19/20 Last Taken Unknown] liothyronine 5 mcg tablet 10 mcg PO QDAY tab 10/31/17 [History Confirmed 07/19/20 Last Taken Unknown] levothyroxine 25 mcg tablet 125 mcg PO QDAY tab 12/06/17 [History Confirmed 07/19/20 Last Taken Unknown] calcitriol 0.25 mcg capsule 0.25 mcg PO BID 07/11/20 [History Confirmed 07/19/20 Last Taken Unknown] COURSE Hospital Course Hospital course: nterval history: 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 Patient is and lives with her who was recently diagnosed with Covid. Initial work-up in the ER was consistent with Covid pneumonia/white count 12,000. Patient was started on remdesivir/steroid. Hospital service was consulted. At the time of evaluation patient is on 3 L oxygen. She is anxious but able to talk in full sentences without significant respiratory distress. She denies headache, photophobia, nausea, diarrhea, dysuria, chest pain or productive cough. She does endorse to fatigue malaise weakness and fever. 07/20-patient currently on 5 L oxygen with worsening respiratory status since previous night. Currently on remdesivir/dexamethasone. Feels anxious. No telemetry events. Continue COVID-19 precautions. White count 8.5. Stable hemodynamics. Potassium up from 3.1-3.7. Calcium 5.7 on replacement. Creatinine 1.8. Later in the evening patient became profoundly short of breath and requiring 10 days oxygen. Patient transition to noninvasive ventilation. Clear worsening of Covid pneumonia noted. Now on 55% FiO2 on noninvasive ventilation. Continue remdesivir/dexamethasone. Consider transfer to tertiary center if clinical deterioration noted. Patient critically ill with [place] 2 score 15. 07/21-patient overnight on noninvasive mechanical ventilation. Currently on 40% FiO2. Feels a lot better. Less things anxious. White count 9.9. D-dimer low, potassium 3.2 on replacement, calcium 6.1 on replacement, ferritin 359, CRP 13.5. Continue twice daily thrombosis prophylaxis./Antibiotics/remdesivir dexamethasone 07/22- Pt on 40% FiO2 non invasive ventilation, on 9L O2 when off NIV. WBC 11.5, afebrile, Feel better than previous day, Continue remdesivir 07/23-interval worsening chest imaging with bilateral pneumonia. Remains on 40% FiO2/8 L oxygen nasal cannula while off noninvasive ventilation. Continue remdesivir/dexamethasone. Stable hemodynamics. White count 10.6. Continue thrombosis prophylaxis 07/24 Patient feeling little better every day. Has occasional cough. Some shortness of breath is improving. On 5 L nasal cannula. Patient was told in the past she had obstructive sleep apnea and was likely getting a CPAP machine but never followed through. 07/25 Feeling better this morning. Minimal cough. Breathing better. Lowered to 4 L nasal cannula as of a few minutes ago. 07/26 Continues gradual improvement. On 2 L nasal cannula this morning. No overnight event or new complaints. 07/27 Doing well. Is been on room air since yesterday afternoon. Poor discharge A: *COVID 19 PNA: *ALI/Acute respiratory failure with hypoxia: *Hypothyroidism: *Obesity: *JACQUI: never followed up for CPAP eval Discharge diagnosis: Covid pneumonia acute lung injury with acute hypoxic respiratory failure Secondary discharge diagnosis: BCT obstructive sleep apnea Time Spent with Patient Time attestation: Total time spent providing and/or coordinating discharge services: EXAM Constitutional Vitals: Temp Pulse Resp BP Pulse Ox 96.6 F L 61 18 139/95 94 07/26/20 04:02 07/26/20 05:00 07/26/20 06:01 07/26/20 06:01 07/26/20 06:01 Discharge Data Data Completed and Pending Labs on day of discharge: Labs from last 24 hours 07/26/20 04:58 Sodium 137 Potassium 4.3 Chloride 101 Carbon Dioxide 25 Anion Gap 11.0 BUN 16 Creatinine 0.6 GFR Calculation 111 Glucose 92 Calcium 7.6 L Discharge Plan Patient/Caregiver Discharge Instructions Activity: increase activity as tolerated Diet: Regular Diet Instructions: COVID-19, Sleep Apnea (GEN), Hypokalemia (GEN) Activity Restrictions/Additional Instructions: Referral to see pulmonology in 7 to 14 days for possible CPAP for JACQUI- A referral has been sent. This discharge packet is provided to you to help keep you informed about your care. We want to ensure you get everything you need when you go home. You will also be receiving a call from us in a few days to follow up with you and see how you are doing since your discharge. This gives us a chance to listen to any concerns you maybe experiencing since you were discharged or any additional needs you may have, as well as providing us feedback on your care experience. We strive to always provide excellent care and thank you for your feedback and for choosing [facility]. Prescriptions: Continued liothyronine [Cytomel] 5 mcg tablet 10 mcg PO QDAY RF: 0 albuterol sulfate [ProAir HFA] 90 mcg/actuation HFA aerosol inhaler 2 puff INHALATION Q6H PRN (Reason: shortness of breath or wheezing) Qty: 18 RF: 0 levothyroxine [Synthroid] 25 mcg tablet 125 mcg PO QDAY RF: 0 calcitriol 0.25 mcg capsule 0.25 mcg PO BID RF: 0 Follow Up Plan Follow up with: Arnaldo Balbuena MD [Physician] - (A referral has been sent to Dr. Balbuena, they will contact you to schedule an appointment.) Vira Dumont DO [Primary Care Provider] - 08/08/20 9:30 am (If you still have Covid symptoms, please call to change this appointment to virtual.) Patient Disposition: Home, Self-Care Prognosis: Fair Overall status at discharge: patient is progressing back to baseline Discharge Orders: Discharge Order (Routine); Ordered 07/27/20 Ordered By: David GARNICA VTE Deep Vein Thrombosis/Pulmonary Embolism Present on Admission: No
[2020-07-26] MEDS ORDERED: LORazepam 0.5 MG TABLET PO PRN (10:57)
[2020-07-26] MEDS ORDERED: ONDANSETRON 4 MG/2 ML VIAL IV PRN (10:57)
[2020-07-26] MEDS ORDERED: POLYETHYLENE GLYCOL 3350 17 GM PACKET PO PRN (10:57)
[2020-07-26] MEDS ORDERED: POTASSIUM CHLORIDE 20 MEQ PACKET PO PRN (10:57)
[2020-07-26] MEDS ORDERED: METOPROLOL TARTRATE 5 MG/5 ML VIAL IV PRN (10:57)
[2020-07-26] MEDS ORDERED: ONDANSETRON 4 MG ODT TABLET SL PRN (10:57)
[2020-07-26] MEDS ORDERED: BISACODYL 10 MG SUPP.RECT PR PRN (10:57)
[2020-07-26] MEDS ORDERED: ACETAMINOPHEN 650 MG/65 ML BOTTLE IV PRN (10:57)
[2020-07-26] MEDS ORDERED: guaiFENesin/CODEINE 10 ML UDC PO PRN (10:57)
[2020-07-26] MEDS ORDERED: ACETAMINOPHEN 325 MG TABLET PO PRN (10:57)
[2020-07-26] MEDS ORDERED: MAGNESIUM SULFATE 2 GM/50 ML BAG IV PRN (10:57)
[2020-07-26] MEDS ORDERED: POTASSIUM CHLORIDE 40 MEQ in DEXTROSE 5% IN WATER 500 ML IV PRN (10:57)
[2020-07-26] MEDS ORDERED: MELATONIN 3 MG TABLET PO PRN (10:57)
[2020-07-26] MEDS ORDERED: hydrALAZINE 20 MG/ML VIAL IV PRN (10:57)
[2020-07-26] MEDS: SENNOSIDES/DOCUSATE SODIUM 1 TAB TABLET PO SCH (21:10)
[2020-07-27] MEDS: 0.9 % SODIUM CHLORIDE 10 ML SYRINGE IV SCH ×3 (04:12→22:05)
[2020-07-27] MEDS: LEVOTHYROXINE 125 MCG TABLET PO SCH (08:13)
[2020-07-27] MEDS: LIOTHYRONINE 5 MCG TABLET PO SCH (08:13)
[2020-07-27] MEDS: MULTIVIT,THER IRON,CA,FA & MIN 1 TABLET PO SCH (09:20)
[2020-07-27] MEDS: DEXAMETHASONE 4 MG TABLET PO SCH (09:20)
[2020-07-27] MEDS: ENOXAPARIN 40 MG/0.4 ML SYRINGE SQ SCH ×2 (09:20→20:27)
[2020-07-27] MEDS: ZINC SULFATE 50 MG CAPSULE PO SCH (09:20)
[2020-07-27] MEDS: DOCUSATE SODIUM 100 MG CAPSULE PO SCH ×2 (09:20→20:11)
[2020-07-27] MEDS: BUDESONIDE 1 PUFF INHALER INH SCH ×2 (09:21→20:28)
[2020-07-27] MEDS: TIOTROPIUM BROMIDE 18 MCG INHALANT INH SCH (09:22)
[2020-07-27] MEDS: cefTRIAXone 2 GM in DEXTROSE 5% IN WATER 50 ML IV SCH (09:22)
[2020-07-27] MEDS: CALCITRIOL 0.25 MCG CAPSULE PO SCH ×2 (09:47→20:27)
--- NOTE | 2020-07-27 10:37 | Internal Med Progress Note ---
SUBJECTIVE Subjective Patient information: Note initiated : 07/27/20 at 10:35 am Service Date, if different from initiated Date: [] Patient: Katey Maria a 45 y/o F admitted on 07/19/20 for SOB, covid positive. 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 Patient is and lives with her who was recently diagnosed with Covid. Initial work-up in the ER was consistent with Covid pneumonia/white count 12,000 . Patient was started on remdesivir/steroid. Hospital service was consulted. At the time of evaluation patient is on 3 L oxygen. She is anxious but able to talk in full sentences without significant respiratory distress. She denies headache, photophobia, nausea, diarrhea, dysuria, chest pain or productive cough. She does endorse to fatigue malaise weakness and fever. 07/20-patient currently on 5 L oxygen with worsening respiratory status since previous night. Currently on remdesivir/dexamethasone. Feels anxious. No telemetry events. Continue COVID-19 precautions. White count 8.5. Stable hemodynamics. Potassium up from 3.1-3.7. Calcium 5.7 on replacement. Creatinine 1.8. Later in the evening patient became profoundly short of breath and requiring 10 days oxygen. Patient transition to noninvasive ventilation. Clear worsening of Covid pneumonia noted. Now on 55% FiO2 on noninvasive ventilation. Continue remdesivir/dexamethasone. Consider transfer to tertiary center if clinical deterioration noted. Patient critically ill with [place] 2 score 15. 07/21-patient overnight on noninvasive mechanical ventilation. Currently on 40% FiO2. Feels a lot better. Less things anxious. White count 9.9. D-dimer low, potassium 3.2 on replacement, calcium 6.1 on replacement, ferritin 359, CRP 13.5. Continue twice daily thrombosis prophylaxis./Antibiotics/remdesivir dexamethasone 07/22- Pt on 40% FiO2 non invasive ventilation, on 9L O2 when off NIV. WBC 11.5, afebrile, Feel better than previous day, Continue remdesivir 07/23-interval worsening chest imaging with bilateral pneumonia. Remains on 40% FiO2/8 L oxygen nasal cannula while off noninvasive ventilation. Continue remdesivir/dexamethasone. Stable hemodynamics. White count 10.6. Continue thrombosis prophylaxis 07/24 Patient feeling little better every day. Has occasional cough. Some shortness of breath is improving. On 5 L nasal cannula. Patient was told in the past she had obstructive sleep apnea and was likely getting a CPAP machine but never followed through. 07/25 Feeling better this morning. Minimal cough. Breathing better. Lowered to 4 L nasal cannula as of a few minutes ago. 07/26 Continues gradual improvement. On 2 L nasal cannula this morning. No overnight event or new complaints. 07/27 On room air at rest but desats with exertion. Overall feeling better. Continue current therapies in hopes to decrease oxygen requirement with exertion. Patient will likely need to be discharged with oxygen. Only has dyspnea on exertion. No other complaints, minimal cough Review of Systems: denies headache/fever/chills/nausea/vomiting/chest or abdominal pain/diarrhea. Otherwise see above. Constitutional Vitals: Vital Signs Temp Pulse Resp BP Pulse Ox 97.6 F 68 20 110/77 89 L 07/27/20 08:15 07/27/20 07:50 07/27/20 07:50 07/27/20 07:50 07/27/20 08:15 Period Temp Pulse Resp BP Sys/Cobb Pulse Ox Last 24 Hr 97.1 F-98.5 F 48-87 14-24 110-137/66-96 87-99 Intake and Output 07/26/20 07/27/20 07/27/20 21:59 05:59 13:59 Intake Total 240 250 Output Total 100 500 Balance 140 -250 Weight 88.541 kg Intake & Output: Intake & Output 07/26/20 07/27/20 07/27/20 21:59 05:59 13:59 Intake Total 240 250 Output Total 100 500 Balance 140 -250 Weight 88.541 kg Intake: Oral 240 250 Output: Void Amount 100 500 Other: Meal Dinner Percent of Meal Consumed 100% Feeding Ability Independent Urine Appearance Clear Clear Urine Color Bright Yellow Bright Yellow Urine Odor Normal # Voids 1 Exam: General: Alert, Awake, No acute Distress Eyes/N/T: EOMI, Head/Neck: neck supple, CV: RRR, No murmurs, Pulm: mild fine rales b/l improved, no wheezing Abd: soft, nontender, +BS x4 Ext: no clubbing/cyanosis/edema Neuro: Alert, no focal deficits, moves all extremities, Skin: warm/dry OBJ DATA Labs CBC & Chem 7: 07/23/20 05:12 07/26/20 04:58 Labs: Abnormal Lab Results 07/26/20 07/25/20 04:58 05:04 Glucose 113 H Calcium 7.6 L 7.0 L Phosphorus 4.6 H GGT 40 H Lactate Dehydrogenase 455 H Total Protein 5.6 L Albumin 2.7 L Albumin/Globulin Ratio 0.9 L Meds: Medications Acetaminophen (Tylenol) 650 mg PO Q4-6HP PRN; Protocol PRN Reason: Per Pain Protocol/Fever > 101 Bisacodyl (Dulcolax) 10 mg AR Q2-3DAYS PRN PRN Reason: Constipation Budesonide (Pulmicort) 2 puff INH BID [facility] Last Admin: 07/27/20 09:21 Dose: 2 puff Documented by: Calcitriol (Rocaltrol) 0.25 mcg PO BID [facility] Last Admin: 07/27/20 09:47 Dose: 0.25 mcg Documented by: Dexamethasone (Decadron) 6 mg PO DAILY [facility] Last Admin: 07/27/20 09:20 Dose: 6 mg Documented by: Docusate Sodium (Colace) 100 mg PO BID [facility] Last Admin: 07/27/20 09:20 Dose: Not Given Documented by: Enoxaparin Sodium (Lovenox) 40 mg SQ BID [facility] Last Admin: 07/27/20 09:20 Dose: 40 mg Documented by: Guaifenesin/Codeine Phosphate (Robitussin Ac) 10 ml PO Q4HP PRN PRN Reason: Cough Hydralazine HCl (Apresoline) 10 mg IV Q4-6HP PRN PRN Reason: Hypertension Ceftriaxone Sodium 2 gm/ (Dextrose) 50 mls @ 100 mls/hr IV Q24H [facility]; Protocol Last Admin: 07/27/20 09:22 Dose: 100 mls/hr Documented by: Magnesium Sulfate (Magnesium Sulfate) 2 gm in 50 mls @ 50 mls/hr IV UD PRN PRN Reason: MG = or < 1.7 Potassium Chloride 40 meq/ (Dextrose) 520 mls @ 130 mls/hr IV UD PRN PRN Reason: K+ = or < 3.5 Acetaminophen (Ofirmev) 650 mg in 65 mls @ 130 mls/hr IV Q6HP PRN; Protocol PRN Reason: Per Pain Protocol/Fever > 101 Iron Carb/Multivit/[place]/Folic Acid (Multivitamin W/Minerals) 1 tab PO DAILY [facility] Last Admin: 07/27/20 09:20 Dose: 1 tab Documented by: Levothyroxine [facility] ([facility]th[facility]) [facility] Admin: 07/27/20 08:13 Dose: 125 mcg Documented by: Liothyronine Sodium (Cytomel) 10 mcg PO QAMAC [facility] Last Admin: 07/27/20 08:13 Dose: 10 mcg Documented by: Lorazepam (Ativan) 0.5 mg PO Q6HP PRN PRN Reason: ANXIETY/SEDATION Melatonin (Melatonin 3mg Tablet) 3 mg PO HSP PRN PRN Reason: Insomnia Metoprolol Tartrate (Lopressor) 5 mg IV Q5M PRN PRN Reason: Heart Rate > 140 bpm Ondansetron HCl (Zofran Odt) 4 mg SL Q4-6HP PRN; Protocol PRN Reason: Nausea And Vomiting Ondansetron HCl (Zofran) 4 mg IV Q4-6HP PRN; Protocol PRN Reason: Nausea And Vomiting Polyethylene Glycol (Miralax) 17 gm PO DAILYP PRN PRN Reason: Constipation Potassium Chloride (Klor-Con) 40 meq PO DAILYP PRN PRN Reason: K+ < 3.5 Senna/Docusate Sodium (Senna Plus Tablet) 1 tab PO HS [facility] Last Admin: 07/26/20 21:10 Dose: Not Given Documented by: Sodium Chloride (Saline Flush) 10 ml IV Q8 [facility] Last Admin: 07/27/20 04:12 Dose: 10 ml Documented by: Tiotropium [place] (Spiriva) 18 mcg INH DAILY [facility] Last Admin: 07/27/20 09:22 Dose: 1 puff Documented by: Zinc Sulfate (Zinc) 50 mg PO DAILY [facility] Last Admin: 07/27/20 09:20 Dose: 50 mg Documented by: ABG Interpretation ABG results: 07/19/20 20:28 ABG Methemoglobin 0 L VBG pH 7.47 VBG pCO2 26.3 VBG pO2 146.8 VBG HCO3 18.8 VBG Total CO2 19.6 VBG O2 Saturation 94.1 VBG Base Excess -4 L A/P Narrative A/P Narrative: A: *COVID 19 PNA: -Inflammatory markers improving *ALI/Acute respiratory failure with hypoxia: -now room air at rest but requiring O2 with ambulation, cpap at night for satya *hypokalemia/Hypocalcemia: improved *Hypothyroidism: *Obesity: *SATYA: never followed up for CPAP eval Plan: -finished Remdesivir, cont dexamethasone -self-prone positioning -IS/Acapella -Wean O2 as tolerated, prn NIV -f/u with pulmonology for SATYA -ppx: lovenox full code Time Spent With Patient Time: Total time spent is greater than 50% in coordination of care (as documented) at patient's floor/unit and/or counseling patient: QUALITY VTE Deep Vein Thrombosis/Pulmonary Embolism Present on Admission: No
[2020-07-27] MEDS: SENNOSIDES/DOCUSATE SODIUM 1 TAB TABLET PO SCH (20:11)
[2020-07-28] MEDS: 0.9 % SODIUM CHLORIDE 10 ML SYRINGE IV SCH (05:45)
[2020-07-28] MEDS: LEVOTHYROXINE 125 MCG TABLET PO SCH (06:34)
[2020-07-28] MEDS: LIOTHYRONINE 5 MCG TABLET PO SCH (06:34)
[2020-07-28] MEDS: MULTIVIT,THER IRON,CA,FA & MIN 1 TABLET PO SCH (07:54)
[2020-07-28] MEDS: DOCUSATE SODIUM 100 MG CAPSULE PO SCH (07:54)
[2020-07-28] MEDS: DEXAMETHASONE 4 MG TABLET PO SCH (07:54)
[2020-07-28] MEDS: ZINC SULFATE 50 MG CAPSULE PO SCH (07:54)
[2020-07-28] MEDS: ENOXAPARIN 40 MG/0.4 ML SYRINGE SQ SCH (07:54)
[2020-07-28] MEDS: CALCITRIOL 0.25 MCG CAPSULE PO SCH (07:55)
[2020-07-28] MEDS: BUDESONIDE 1 PUFF INHALER INH SCH (07:55)
[2020-07-28] MEDS: cefTRIAXone 2 GM in DEXTROSE 5% IN WATER 50 ML IV SCH (07:55)
[2020-07-28] MEDS: TIOTROPIUM BROMIDE 18 MCG INHALANT INH SCH (07:56)
[2020-07-28] MEDS ORDERED: FLU VACC QS2020-21(6MOS UP)/PF 60 MCG/0.5 ML SYRINGE IM ONE (10:30)
== END 2020-07-28 11:20 | disposition home or self-care (01) | DRG 177 ==
LOC: ED 18:23 → ICU 23:34
PROVIDERS: ADMIT Internal Medicine; ATTEND Internal Medicine